=== PATIENT | female | born 1935 | race Caucasian/White ===

== ENCOUNTER 2017-10-23 14:49 | Inpatient (IN) | payer MEDICARE, OTHER ==
[~2017-10-23] VITALS: Ht 152.4 cm; Wt 59.0 kg
--- NOTE | 2017-10-23 19:30 | NUR ---
RECEIVED PT FROM [place] , DIRECT ADMIT, VIA [facility] AMBULANCE WITH 2 CREWS. TRANSFERRED TO BED , SAFELY. PT NON VERBAL, OPENS HER EYES. RECEIVED ON 10 L OF VIA MASK, 02 SAT IS 97 %. NO DISTRESS, NO SOB NOTED. FC IS INTACT AND PATENT, DRAINING WITH YELLOW URINE, NO HEMATURIA NOTED. IV SITE ON RFA AND LFA INTACT AND PATENT. NO S/S OF INFILTRATION NOTED. BODY CHECK DONE. ALL NEEDS ATTENDED AND MET. KEPT COMFORTABLE. WILL CONT TO MONITOR.
--- NOTE | 2017-10-23 19:45 | NUR ---
PT'S FAMILY AT BEDSIDE.
--- NOTE | 2017-10-23 20:00 | NUR ---
PLACED A CALL TO DR. WELCH , REGARDING ADMISSION ORDERS. AWAITING FOR MD'S ORDERS.
[2017-10-23] MEDS ORDERED: IV NS 0.9% 1,000 ML IV PRN ×2 (20:39→22:30)
--- NOTE | 2017-10-23 20:55 | NUR ---
ENDORSED PT TO MAXIMINO, ACCORDINGLY.
[2017-10-23] MEDS ORDERED: ENOXAPARIN SODIUM 40 MG/0.4 ML DISP.SYRIN SQ SCH (21:00)
[2017-10-23] MEDS ORDERED: MAG HYDROX/AL HYDROX/SIMETH 30 ML UDC PO PRN (21:00)
[2017-10-23] MEDS ORDERED: ZOLPIDEM TARTRATE 5 MG TABLET PO PRN (21:00)
[2017-10-23] MEDS ORDERED: ONDANSETRON HCL/PF 4 MG/2 ML VIAL IVP PRN (21:00)
[2017-10-23] MEDS ORDERED: MAGNESIUM HYDROXIDE 30 ML UDC PO PRN (21:00)
[2017-10-23] MEDS ORDERED: HYDROCODONE/APAP 5/325MG 1 EACH TABLET PO PRN (21:00)
[2017-10-23] MEDS ORDERED: Z GUARD REMEDY 2 OZ OINT TP PRN (21:00)
[2017-10-23] MEDS ORDERED: ACETAMINOPHEN 325 MG TABLET PO PRN (21:00)
[2017-10-23] MEDS ORDERED: CEFTRIAXONE 1 G in IV D5W 50 ML IV SCH (21:00)
--- NOTE | 2017-10-23 21:00 | NUR ---
RN NOTES RECEIVED PT IN BED, DIRECT ADMIT FROM [place], PT NON VERBAL, OPENS HER EYES. RECEIVED ON 8 L OF VIA MASK, 02 SAT IS 97 %. NO DISTRESS, NO SOB NOTED. FC IS INTACT AND PATENT, DRAINING WITH YELLOW URINE. IV SITE ON RFA AND LFA INTACT AND PATENT. NO S/S OF INFILTRATION NOTED. PICS TAKEN. BED IN THE LOWEST LOCKED POSITION. CALL LIGHT WITHIN REACH. I WILL CONT TO MONITOR.
[2017-10-23] MEDS ORDERED: OXYC-128 PO (21:07)
[2017-10-23] MEDS ORDERED: SORB30SO2 PO (21:07)
[2017-10-23] MEDS ORDERED: HYDR1DIS2 IVP (21:07)
[2017-10-23] MEDS ORDERED: TEMA30CA5 PO (21:07)
[2017-10-23] MEDS ORDERED: OSEL30CA PO (21:07)
[2017-10-23] MEDS ORDERED: DOXY100V2 IV (21:07)
[2017-10-23] MEDS ORDERED: ONDA4VIA30 IJ (21:07)
[2017-10-23] MEDS ORDERED: METR500P3 IV (21:07)
[2017-10-23] MEDS ORDERED: CEFT1FRO2 IV (21:07)
[2017-10-23] MEDS ORDERED: DONE10TA44 PO (21:07)
[2017-10-23] MEDS ORDERED: POLY17PO4 PO (21:07)
[2017-10-23] MEDS ORDERED: MEMA10TA PO (21:07)
[2017-10-23] MEDS ORDERED: ALBU2.5V13 NEB (21:07)
[2017-10-23] MEDS ORDERED: HEPA100D33 SQ (21:07)
[2017-10-23] MEDS ORDERED: MAG30ORA PO (21:07)
[2017-10-23] MEDS ORDERED: MELA3TAB PO (21:07)
[2017-10-23] MEDS ORDERED: MORP1SYR2 IVP (21:07)
[2017-10-23] MEDS ORDERED: POTA-10 PO (21:07)
[2017-10-23] MEDS ORDERED: PANT40TA4 PO (21:07)
[2017-10-23] MEDS ORDERED: ACET-868 PO (21:07)
[2017-10-23] MEDS ORDERED: BLOO-140 IN (21:07)
[2017-10-23 21:38] LABS: EOSINOPHILS % (AUTO) 0.1 % (0.0-6.0); HEMATOCRIT 35 % (33-45); HEMOGLOBIN 11.8 g/dL (11.5-14.8); LYMPHOCYTES # (AUTO) 0.8 /CMM (0.8-4.8); MEAN CORPUSCULAR HEMOGLOBIN 32 PG (26.0-33.0); MEAN CORPUSCULAR HGB CONC 34 g/dl (31.0-36.0); MEAN CORPUSCULAR VOLUME 95 fL (82-100); MONOCYTES # (AUTO) 0.4 /CMM (0.1-1.30); MONOCYTES % (AUTO) 2.9 % (2.0-12.0); NEUTROPHILS # (AUTO) 12.6 /CMM (1.8-8.9); PLATELET COUNT (AUTO) 156 /CMM (150-450); RDW COEFFICIENT OF VARIATION 15.6 (11.5-15.0); RED BLOOD CELL COUNT(AUTO) 3.68 MIL/uL (4.0-5.2); WHITE BLOOD COUNT (AUTO) 13.8 K/uL (4.3-11.0)
[2017-10-23 21:41] LABS: ABG BASE EXCESS -2.8 mmol/L; ABG OXYGEN SATURATION 89.5 % (92.0-98.5); ABG PCO2 30.9 mmHg (35.0-45.0); ABG PH 7.434 (7.350-7.450); ABG PO2 54.8 mmHg (75.0-100.0); COHb 0.7 % (0.5-1.5); MetHb 0.1 % (0.0-1.5); O2Hb 88.8 % (94.0-97.0); VENT MODE, BG SIMPLE MASK
[2017-10-23 21:50] LABS: ALANINE AMINOTRANSFERASE 15 U/L (12-78); ALBUMIN 1.8 g/dL (3.4-5.0); ALKALINE PHOSPHATASE 216 U/L (46-116); ASPARTATE AMINOTRANSFERASE 26 U/L (15-37); CALCIUM, SERUM 8.8 mg/dL (8.5-10.1); CARBON DIOXIDE 26 mmol/L (21-32); CREATININE 0.9 mg/dL (0.6-1.3); GLUCOSE 102 mg/dL (74-106); POTASSIUM 3.2 mmol/L (3.5-5.1); TOTAL PROTEIN, SERUM 5.8 g/dL (6.4-8.2); UREA NITROGEN, BLOOD 41 mg/dL (7-18)
[2017-10-23 21:52] LABS: TROPONIN I 0.105 ng/mL (0.00-0.056)
[2017-10-23 22:02] LABS: CHLORIDE 130 mmol/L (98-107); SODIUM SERUM 158 mmol/L (136-145)
[2017-10-23] MEDS: PIPERACILLIN /TAZOBACTAM 2.25 G in IV NS 0.9% 50 ML IV SCH (23:11)
[2017-10-23 23:30] LABS: BILIRUBIN,DIRECT 0.5 mg/dL (0.0-0.2)
[2017-10-23] MEDS ORDERED: PIPERACILLIN /TAZOBACTAM 2.25 G VIAL IV ONE (23:54)
[2017-10-24] VITALS (44 sets, daily range): BP systolic 80–130; BP diastolic 46–74
[2017-10-24] MEDS: PIPERACILLIN /TAZOBACTAM 2.25 G in IV NS 0.9% 50 ML IV SCH ×5 (00:01→23:36)
[2017-10-24] MEDS: IPRATROPIUM NEB FS 0.5 MG/2.5 ML AMPUL.NEB NEB SCH ×7 (00:09→23:00)
[2017-10-24] MEDS ORDERED: VANCOMYCIN 1 GM in IV D5W 250 ML IV ONE (01:00)
[2017-10-24] MEDS ORDERED: VANCOMYCIN 1 GM VIAL ONE (01:56)
--- NOTE | 2017-10-24 06:56 | NUR ---
RN CLOSING NOTES NO SIGNIFICANT CHANGE IN PTS CONDITION OVER NIGHT. PT SLEPT MOST OF NIGHT, OPENS EYES WHEN BEING ATTENDED TO. PT ON 8L OF 02 VIA MASK, 02 SAT IS 97 %- 100%,. NO DISTRESS, NO SOB NOTED. FC IS INTACT AND PATENT, DRAINING WITH YELLOW URINE, NO HEMATURIA NOTED OUTPUT 250. IV SITE ON RFA AND LFA INTACT AND PATENT. LFA INFUSING 0.9NS @ 75ML/HR. NO S/S OF INFILTRATION NOTED. RFA .9 NS BOLUS GIVEN. ADMISSION COMPLETED. ALL NEEDS ATTENDED AND MET.BED IN LOWEST LOCKED POSITION, CALL LIGHT WITHIN REACH. PT KEPT COMFORTABLE. WILL ENDORSE TO AM RN
[2017-10-24 07:33] LABS: EOSINOPHILS % (AUTO) 0.1 % (0.0-6.0); HEMATOCRIT 32 % (33-45); HEMOGLOBIN 10.4 g/dL (11.5-14.8); LYMPHOCYTES # (AUTO) 0.8 /CMM (0.8-4.8); MEAN CORPUSCULAR HEMOGLOBIN 32 PG (26.0-33.0); MEAN CORPUSCULAR HGB CONC 33 g/dl (31.0-36.0); MEAN CORPUSCULAR VOLUME 96 fL (82-100); MONOCYTES # (AUTO) 0.3 /CMM (0.1-1.30); MONOCYTES % (AUTO) 2.8 % (2.0-12.0); NEUTROPHILS # (AUTO) 10.6 /CMM (1.8-8.9); NEUTROPHILS % (AUTO) 90.1 % (43.0-81.0); PLATELET COUNT (AUTO) 134 /CMM (150-450); RDW COEFFICIENT OF VARIATION 15.6 (11.5-15.0); WHITE BLOOD COUNT (AUTO) 11.8 K/uL (4.3-11.0)
--- NOTE | 2017-10-24 07:45 | NUR ---
INCREASED O2 FOR DESAT. PT TACHYPNEIC RESP RATE: IN THE 30'S. PT HAVING SOB, LETHARGIC BUT AROUSABLE. ASKED RN TO CALL MD TO NOTIFY. PT ON 10/L SIMPLE MASK. WILL CONTINUE TO MONITOR PT. Addendum: 10/24/17 at 1833 by RAFFI ACEVEDO RT Amended: Links added.
[2017-10-24 07:46] LABS: CHOLESTEROL 99 mg/dL (<200); HDL CHOLESTEROL 19 mg/dL (40-60); LDL 64 mg/dL (0-99); TRIGLYCERIDES 91 mg/dL (30-150)
[2017-10-24 07:49] LABS: ALANINE AMINOTRANSFERASE 17 U/L (12-78); ALBUMIN 1.5 g/dL (3.4-5.0); ALKALINE PHOSPHATASE 201 U/L (46-116); ASPARTATE AMINOTRANSFERASE 23 U/L (15-37); BILIRUBIN,TOTAL 0.9 mg/dL (0.2-1.0); CALCIUM, SERUM 8.2 mg/dL (8.5-10.1); CARBON DIOXIDE 24 mmol/L (21-32); CREATININE 0.7 mg/dL (0.6-1.3); GLUCOSE 118 mg/dL (74-106); MAGNESIUM 1.8 mg/dL (1.8-2.4); POTASSIUM 3.2 mmol/L (3.5-5.1); TOTAL PROTEIN, SERUM 5.1 g/dL (6.4-8.2); UREA NITROGEN, BLOOD 33 mg/dL (7-18)
[2017-10-24 08:00] LABS: CHLORIDE 136 mmol/L (98-107); SODIUM SERUM 169 mmol/L (136-145)
[2017-10-24] MEDS ORDERED: IV D5/0.45 NACL 1,000 ML IV PRN (08:30)
[2017-10-24] MEDS ORDERED: ENOXAPARIN SODIUM 40 MG/0.4 ML DISP.SYRIN SQ SCH ×2 (09:00→21:00)
[2017-10-24] MEDS: POTASSIUM CL. PREMIX PERIPHER. 50 ML IV SCH ×3 (10:58→13:15)
[2017-10-24 11:31] LABS: ABG BASE EXCESS -2.5 mmol/L; ABG OXYGEN SATURATION 95.3 % (92.0-98.5); ABG PCO2 30.2 mmHg (35.0-45.0); ABG PH 7.452 (7.350-7.450); ABG PO2 75.6 mmHg (75.0-100.0); COHb 0.3 % (0.5-1.5); MetHb 0.2 % (0.0-1.5); O2Hb 94.8 % (94.0-97.0); SITE, ABG Left Radial; VENT MODE, BG SIMPLE MASK 10/L
--- NOTE | 2017-10-24 11:34 | NUR ---
PT CONTINUE TO HAVE SOB/ RESP DISTRESS, LABORED BREATHING. ABG DONE AND DR RICHARDS AWARE. RESP RATE IN THE 30'S. RN AWARE, CN AWARE. WILL CONTINUE TO MONITOR PT. Addendum: 10/24/17 at 1837 by RAFFI ACEVEDO RT Amended: Links added.
[2017-10-24] MEDS: POTASSIUM PHOSPHATE MM 7.5 MMOL in IV NS 0.9% 100 ML IV SCH ×2 (12:47→18:07)
--- NOTE | 2017-10-24 13:30 | NUR ---
PLACED PT ON NRB. KEY TRINIDAD MD AND KRISTINA HOLLIS NP AT BEDSIDE ASSESSING PT. CXR ORDERED, PT WILL TRANSFER TO ICU FOR POSSIBLE INTUBATION. WILL CONTINUE TO MONITOR PT.
--- NOTE | 2017-10-24 14:00 | NUR ---
RN NOTES PATIENT NOTED WITH LABORED BREATHING. STAT CHEST X-RAY DONE. DR KEY COLEMAN AND KRISTINA HOLLIS VALVE ASSEMBLER AT BEDSIDE WITH ORDER TO TRANSFERRED PATIENT TO ICU. PATIENT TRANSFERRED TO ICU. REPORT GIVEN TO RAUL SANTANA FOR CONT OF CARE.
--- NOTE | 2017-10-24 14:05 | NUR ---
ICU/RN: Pt transferred to ICU by primary RN, Davon Ly and Thor White for respiratory distress. Pt for stat intubation. Intubated by Davon Ly ETT 7.5 at 20 cm lip line. CXR ordered. 1430 - Davon Ly at bedside for PICC insertion; no working PIV available.
[2017-10-24] MEDS ORDERED: FEE PK DOSING 1 MIN EA MC ONE (14:54)
[2017-10-24] MEDS ORDERED: PROPOFOL 100 ML IV PRN (15:00)
[2017-10-24] MEDS ORDERED: ETOMIDATE 2 MG/ML VIAL ONE (15:02)
[2017-10-24] MEDS: PROPOFOL 100 ML IV PRN (15:12)
--- NOTE | 2017-10-24 15:29 | NUR ---
PT INTUBATED BY DR. COLEMAN WITH A 7.5 ETT AT 20CM AT THE LIP. POSITIVE COLOR CHANGE ON CAP. B/S BILAT. AUSCULTATED BY DR. COLEMAN. PT PLACED ON AC 14, 450, 100%, +[address] COLEMAN. VENT PLUGGED INTO RED OUTLET. AMBU BAG AT HOB. Addendum: 10/24/17 at 1531 by SUZIE MIMS RT Amended: Links added.
[2017-10-24] MEDS: IV NS 0.9% 1,000 ML IV PRN (15:36)
--- NOTE | 2017-10-24 16:00 | NUR ---
ICU/RN - Notes Pt sedated on mechanical ventilator. Orally intubated to mechanical vent with settings as ordered. No s/s of respiratory distress. Left IJ TLC placed in by Dr Davon Ly. IVF infusing well. Oral tube placed with audible positive placement noted. Phillips catheter intact draining urine to gravity. CVP monitoring in process. Family updated on plan of care. Safety and comfort measure in place. Will continue to monitor pt closely.
[2017-10-24 17:41] LABS: ABG BASE EXCESS -3.3 mmol/L; ABG PCO2 25.1 mmHg (35.0-45.0); AaDO2 409.9 mmHg; COHb 0.3 % (0.5-1.5); MetHb 0.7 % (0.0-1.5); O2Hb 97.7 % (94.0-97.0); PEEP,BG 5 cm H2O; SITE, ABG Right Radial; VT, ABG 450 mL
[2017-10-24] MEDS: NOREPINEPHRINE 8 MG in IV D5W 500 ML IV PRN (18:54)
--- NOTE | 2017-10-24 19:30 | NUR ---
CHIEF DOG LICENSE INSPECTOR: RECEIVED ORALLY INTUBATED PT WT VENT SETTINGS ORDERED. NO ACUTE DISTRESS, NO EVIDENCE OF DISCOMFORT. SEDATED ON DIPRIVAN AT 10MCG/LG/MIN. WITHDRAWS TO LOCALIZED PAIN, UNABLE TO FOLLOW COMMANDS AT THIS TIME. LT. IJ TLC ALSO INFUSING NS AT 125ML/HR AND LEVOPHED AT 1 MCG/MIN. OGT REMAINED CLAMPED AT THIS TIME, VERIFIED PLACEMENT. SR ON CUPOLA WORKER. F/C PATENT AND INTACT DRAINING MINIMAL AMT. OF TEA COLORED URINE. HOB ELEVATED AT 35 DEGREES. SAFETY PRECAUTION NOTED AT ALL TIMES.
--- NOTE | 2017-10-24 19:53 | NUR ---
Received pt on vent support, pt stable on current settings, no SOB or respiratory distress noted, ventilator is plugged into red outlet, alarms audible and on. Ambu bag at bedside, will continue monitoring per MDS orders. Addendum: 10/24/17 at 1954 by JORDIN TEIXEIRA RT Amended: Links added.
[2017-10-24] MEDS: VANCOMYCIN 500 MG in IV NS 0.9% 100 ML IV SCH (20:39)
[2017-10-24] MEDS ORDERED: IV NS 0.9% 500 ML BAG IV PRN (21:00)
[2017-10-24 21:13] LABS: APPEARANCE,URINE CLOUDY (CLEAR); BILIRUBIN,URINE NEGATIVE (NEGATIVE); BLOOD, URINE 2+ Ery/uL (NEGATIVE); COLOR,URINE YELLOW (YELLOW); KETONES,URINE NEGATIVE (NEGATIVE); LEUKOCYTE ESTERASE ,URINE 2+ (NEGATIVE); NITRITE, URINE NEGATIVE (NEGATIVE); PH,URINE 5.5 (5.0-8.0); PROTEIN,URINE TRACE mg/dl (NEGATIVE); UGLUCOSE NEGATIVE (NEGATIVE); UROBILINOGEN,URINE 0.2 EU/dL (0.2)
[2017-10-24 21:23] LABS: CREATININE, URINE 29.4 MG/DL (30.0-125.0); URINE TOTAL PROTEIN 63.1 mg/dL (0-11.9)
[2017-10-24 21:30] LABS: BACTERIA,URINE Few /HPF (None Seen)
[2017-10-24 21:31] LABS: SQUAMOUS EPITHELIAL CELL,UR Few /HPF (None Seen)
[2017-10-24 21:52] LABS: EOSINOPHIL,URINE None Seen
[2017-10-24 22:23] LABS: CALCIUM, SERUM 7.8 mg/dL (8.5-10.1); CARBON DIOXIDE 22 mmol/L (21-32); CREATININE 0.7 mg/dL (0.6-1.3); GLUCOSE 122 mg/dL (74-106); POTASSIUM 3.3 mmol/L (3.5-5.1); UREA NITROGEN, BLOOD 30 mg/dL (7-18)
[2017-10-24 22:28] LABS: CHLORIDE 133 mmol/L (98-107); SODIUM SERUM 164 mmol/L (136-145)
[2017-10-25] VITALS (110 sets, daily range): BP systolic 80–127; BP diastolic 46–81
--- NOTE | 2017-10-25 | NUR ---
COLORIST: NO NUSRAT. VS WITHIN PT's BASELINE. REPOSITIONED.
[2017-10-25] MEDS: IV NS 0.9% 1,000 ML IV PRN (01:35)
[2017-10-25] MEDS: IPRATROPIUM NEB FS 0.5 MG/2.5 ML AMPUL.NEB NEB SCH ×6 (02:49→23:35)
--- NOTE | 2017-10-25 04:00 | NUR ---
RESISTOR TESTER: BED BATH GIVEN AND TOLERATED WELL.
[2017-10-25 04:56] LABS: EOSINOPHILS # (AUTO) 0.2 /CMM (0.0-0.7); EOSINOPHILS % (AUTO) 1.4 % (0.0-6.0); HEMATOCRIT 29 % (33-45); HEMOGLOBIN 9.8 g/dL (11.5-14.8); LYMPHOCYTES # (AUTO) 1.1 /CMM (0.8-4.8); LYMPHOCYTES % (AUTO) 8.3 % (20.0-44.0); MEAN CORPUSCULAR HEMOGLOBIN 32 PG (26.0-33.0); MEAN CORPUSCULAR HGB CONC 34 g/dl (31.0-36.0); MEAN CORPUSCULAR VOLUME 94 fL (82-100); MONOCYTES # (AUTO) 0.4 /CMM (0.1-1.30); MONOCYTES % (AUTO) 2.7 % (2.0-12.0); NEUTROPHILS % (AUTO) 87.6 % (43.0-81.0); PLATELET COUNT (AUTO) 128 /CMM (150-450); WHITE BLOOD COUNT (AUTO) 13.8 K/uL (4.3-11.0)
[2017-10-25 05:17] LABS: ALANINE AMINOTRANSFERASE 15 U/L (12-78); ALKALINE PHOSPHATASE 194 U/L (46-116); ASPARTATE AMINOTRANSFERASE 20 U/L (15-37); BILIRUBIN,TOTAL 1.3 mg/dL (0.2-1.0); CALCIUM, SERUM 7.7 mg/dL (8.5-10.1); CARBON DIOXIDE 23 mmol/L (21-32); CREATININE 0.6 mg/dL (0.6-1.3); GLUCOSE 99 mg/dL (74-106); MAGNESIUM 1.5 mg/dL (1.8-2.4); PHOSPHORUS 2.4 mg/dL (2.5-4.9); POTASSIUM 2.9 mmol/L (3.5-5.1); TOTAL PROTEIN, SERUM 4.7 g/dL (6.4-8.2); UREA NITROGEN, BLOOD 26 mg/dL (7-18)
[2017-10-25 05:31] LABS: ALBUMIN 1.3 g/dL (3.4-5.0); CHLORIDE 132 mmol/L (98-107); SODIUM SERUM 163 mmol/L (136-145)
[2017-10-25] MEDS: PIPERACILLIN /TAZOBACTAM 2.25 G in IV NS 0.9% 50 ML IV SCH ×4 (06:16→23:39)
[2017-10-25] MEDS: PROPOFOL 100 ML IV PRN (06:22)
--- NOTE | 2017-10-25 06:30 | NUR ---
FUEL MANAGEMENT HANDLER: RELAYED ABNORMAL LABS TO DR. WELCH WT EMPHASIS ON CRITICAL ALBUMIN=1.3. MD SAID NO ORDER FOR ALBUMIN AND JUST FF-UP WT DAY SHIFT MD FOR GT FEEDING. WT ORDER FOR MG 2GM AND KCL 40MEQ IV FOR K=2.9. NOTED AND CARRIED OUT.
[2017-10-25] MEDS ORDERED: Magnesium 1GM/D5W 100ML PREMIX 100 ML IV ONE (06:39)
[2017-10-25] MEDS: Magnesium 1GM/D5W 100ML PREMIX 100 ML IV SCH ×2 (06:45→08:34)
--- NOTE | 2017-10-25 07:30 | NUR ---
WIRE COMMUNICATIONS ENGINEER RECEIVED PATIENT ON DIPRIVAN SEDATION (+) PAIN STIMULI, FACIAL GRIMACE NOTED WHEN TURNED TO SIDE TO SIDE PLACED ON NPO FREE FLUSHED TO OGT PER MD ORDER ON LEVOPHED DRIP TITRATING ACCORDINGLY MAG AND K REPLACEMENT ON GOING WITH LING CONNECTED TO URINE BAG WITH SMALL AMOUNT
[2017-10-25] MEDS: ENOXAPARIN SODIUM 40 MG/0.4 ML DISP.SYRIN SQ SCH (08:35)
[2017-10-25 08:52] LABS: ABG BASE EXCESS -3.9 mmol/L; ABG OXYGEN SATURATION 97.3 % (92.0-98.5); ABG PCO2 27.7 mmHg (35.0-45.0); ABG PH 7.456 (7.350-7.450); AaDO2 183.3 mmHg; COHb 0.3 % (0.5-1.5); MetHb 0.3 % (0.0-1.5); O2Hb 96.7 % (94.0-97.0); PEEP,BG 5 cm H2O; SITE, ABG Left Radial; VENT MODE, BG AC 14 400 45% +5; VT, ABG 400 mL
[2017-10-25] MEDS: POTASSIUM CL. PREMIX PERIPHER. 50 ML IV SCH ×4 (09:44→12:00)
[2017-10-25] MEDS ORDERED: Sodium Phosphate 5 MMOL in IV D5W 100 ML IV ONE (11:00)
[2017-10-25] MEDS: VANCOMYCIN 500 MG in IV NS 0.9% 100 ML IV SCH (13:38)
--- NOTE | 2017-10-25 14:00 | NUR ---
MANAGER SUSTAINABILITY CHANGED URINE BAG SEEN AND EXAMINED BY DR. COLE WITH NEW ORDERS MAD AND CARRIED
[2017-10-25] MEDS: NOREPINEPHRINE 8 MG in IV D5W 500 ML IV PRN (15:48)
[2017-10-25] MEDS: LEVOFLOXACIN 750 MG /D5W 150ML 750 MG in PREMIX 1 EA IV SCH (16:23)
--- NOTE | 2017-10-25 17:34 | NUR ---
RT NOTE PT REMAINS MECHANICALLY VENTILATED VIA 7.5 ETT 20 CM AT LIP. SETTINGS PRESCRIBED AC 14 400 45% +5. ALARMS SET PER PROTOCOL AND AUDIBLE. VENT PLUGGED IN TO RED OUTLET. AMBU BAG AT BED SIDE. NO DISTRESS NOTED.
[2017-10-26] VITALS (99 sets, daily range): BP systolic 81–120; BP diastolic 46–87
[2017-10-26] MEDS: IPRATROPIUM NEB FS 0.5 MG/2.5 ML AMPUL.NEB NEB SCH ×6 (03:31→23:44)
[2017-10-26 05:26] LABS: BASOPHILS % (AUTO) 0.2 % (0.0-2.0); EOSINOPHILS # (AUTO) 0.5 /CMM (0.0-0.7); EOSINOPHILS % (AUTO) 5.6 % (0.0-6.0); HEMATOCRIT 27 % (33-45); LYMPHOCYTES # (AUTO) 1.2 /CMM (0.8-4.8); LYMPHOCYTES % (AUTO) 12.5 % (20.0-44.0); MEAN CORPUSCULAR HEMOGLOBIN 31 PG (26.0-33.0); MEAN CORPUSCULAR HGB CONC 33 g/dl (31.0-36.0); MEAN CORPUSCULAR VOLUME 94 fL (82-100); MONOCYTES # (AUTO) 0.5 /CMM (0.1-1.30); NEUTROPHILS # (AUTO) 7.1 /CMM (1.8-8.9); NEUTROPHILS % (AUTO) 76.7 % (43.0-81.0); PLATELET COUNT (AUTO) 116 /CMM (150-450); RDW COEFFICIENT OF VARIATION 15.3 (11.5-15.0); RED BLOOD CELL COUNT(AUTO) 2.93 MIL/uL (4.0-5.2); WHITE BLOOD COUNT (AUTO) 9.2 K/uL (4.3-11.0)
[2017-10-26 05:48] LABS: ALANINE AMINOTRANSFERASE 10 U/L (12-78); ALKALINE PHOSPHATASE 174 U/L (46-116); ASPARTATE AMINOTRANSFERASE 19 U/L (15-37); BILIRUBIN,TOTAL 1.1 mg/dL (0.2-1.0); CALCIUM, SERUM 7.3 mg/dL (8.5-10.1); CARBON DIOXIDE 18 mmol/L (21-32); CHLORIDE 121 mmol/L (98-107); CREATININE 0.5 mg/dL (0.6-1.3); GLUCOSE 95 mg/dL (74-106); MAGNESIUM 1.8 mg/dL (1.8-2.4); PHOSPHORUS 2.3 mg/dL (2.5-4.9); POTASSIUM 3.4 mmol/L (3.5-5.1); SODIUM SERUM 149 mmol/L (136-145); TOTAL PROTEIN, SERUM 4.2 g/dL (6.4-8.2)
[2017-10-26 05:58] LABS: UREA NITROGEN, BLOOD 14 mg/dL (7-18)
[2017-10-26] MEDS: PIPERACILLIN /TAZOBACTAM 2.25 G in IV NS 0.9% 50 ML IV SCH ×3 (06:06→17:23)
[2017-10-26] MEDS: PROPOFOL 100 ML IV PRN ×2 (06:07→18:00)
[2017-10-26 06:11] LABS: ALBUMIN 1.1 g/dL (3.4-5.0)
[2017-10-26] MEDS: NOREPINEPHRINE 8 MG in IV D5W 500 ML IV PRN ×2 (07:26→18:33)
--- NOTE | 2017-10-26 08:27 | NUR ---
WOUND CARE CONSULT: PT PRESENTS WITH SACRAL SCARRING AND SKIN STAINING. CURRENT FLORIN SCORE IS 12. PT ON FIRST STEP MATTRESS. ALL SKIN PROTECTION MEASURES IN PLACE AND DISCUSSED WITH NURSING STAFF. PT IS INCONTINENT. WILL SEE PRN. VERDUGO IN AGREEMENT WITH PLAN OF CARE. Addendum: 10/26/17 at 0831 by JAH CARUSO WNDNU Amended: Links added.
[2017-10-26] MEDS: VANCOMYCIN 500 MG in IV NS 0.9% 100 ML IV SCH (08:40)
[2017-10-26] MEDS: ENOXAPARIN SODIUM 40 MG/0.4 ML DISP.SYRIN SQ SCH (08:50)
--- NOTE | 2017-10-26 10:50 | NUR ---
BANK TELLER NOTE 0720: Received patient sedated. With ETT to vent, tolerated settings at this time. SR 60's on the monitor. CVP 4. With LIJ TLC intact. On IVF infusing as ordered. On Diprivan @ 15mcg, Levophed @ 8mcg. Phillips cath intact, noted with yellow urine with sediments drained to BSD. OGT intact, clamped. 0900: Able to titrate off Diprivan for sedation vacation. Patient remained calm at this time. Will continue to monitor. Obtained order for CAMERA ENGINEER restraints for safety. Will monitor for need for sedation. Opens eyes but does not follow commands at this time. 0940: S/E by Dr. Gallardo, no new order at this time. Levo @ 6mcg at this time, will titrate as ordered. 1040: No any significant changes noted at this time. Continue off sedation, remained calm.
[2017-10-26] MEDS: FIBERSOURCE HN 1,000 ML BOTTLE GT PRN (15:25)
[2017-10-26] MEDS ORDERED: NEUTRA PHOS 1 POWD.PACKET NG ONE (17:00)
[2017-10-27] VITALS (78 sets, daily range): BP systolic 79–131; BP diastolic 28–109
[2017-10-27] MEDS: PIPERACILLIN /TAZOBACTAM 2.25 G in IV NS 0.9% 50 ML IV SCH ×4 (00:08→17:30)
[2017-10-27] MEDS: VANCOMYCIN 500 MG in IV NS 0.9% 100 ML IV SCH ×2 (02:29→19:17)
[2017-10-27] MEDS: IPRATROPIUM NEB FS 0.5 MG/2.5 ML AMPUL.NEB NEB SCH ×6 (03:40→23:51)
--- NOTE | 2017-10-27 03:40 | NUR ---
samanthae extremity dvt positive in brachial vein, report called in at 0323, dr briceño called at 0330, no new orders, will continue to monitor
[2017-10-27 05:09] LABS: BASOPHILS % (AUTO) 0.2 % (0.0-2.0); EOSINOPHILS # (AUTO) 0.3 /CMM (0.0-0.7); HEMATOCRIT 27 % (33-45); HEMOGLOBIN 9.1 g/dL (11.5-14.8); LYMPHOCYTES # (AUTO) 0.6 /CMM (0.8-4.8); LYMPHOCYTES % (AUTO) 10.1 % (20.0-44.0); MEAN CORPUSCULAR HEMOGLOBIN 31 PG (26.0-33.0); MEAN CORPUSCULAR HGB CONC 34 g/dl (31.0-36.0); MEAN CORPUSCULAR VOLUME 93 fL (82-100); MONOCYTES # (AUTO) 0.3 /CMM (0.1-1.30); MONOCYTES % (AUTO) 4.9 % (2.0-12.0); NEUTROPHILS # (AUTO) 4.6 /CMM (1.8-8.9); NEUTROPHILS % (AUTO) 79.8 % (43.0-81.0); PLATELET COUNT (AUTO) 110 /CMM (150-450); RDW COEFFICIENT OF VARIATION 15.3 (11.5-15.0); RED BLOOD CELL COUNT(AUTO) 2.92 MIL/uL (4.0-5.2); WHITE BLOOD COUNT (AUTO) 5.8 K/uL (4.3-11.0)
[2017-10-27 05:31] LABS: ALANINE AMINOTRANSFERASE 11 U/L (12-78); ALKALINE PHOSPHATASE 280 U/L (46-116); ASPARTATE AMINOTRANSFERASE 23 U/L (15-37); BILIRUBIN,TOTAL 1.1 mg/dL (0.2-1.0); CALCIUM, SERUM 7.5 mg/dL (8.5-10.1); CARBON DIOXIDE 18 mmol/L (21-32); CHLORIDE 121 mmol/L (98-107); CREATININE 0.4 mg/dL (0.6-1.3); GLUCOSE 121 mg/dL (74-106); MAGNESIUM 1.8 mg/dL (1.8-2.4); POTASSIUM 3.7 mmol/L (3.5-5.1); SODIUM SERUM 148 mmol/L (136-145); TOTAL PROTEIN, SERUM 4.2 g/dL (6.4-8.2); UREA NITROGEN, BLOOD 10 mg/dL (7-18)
[2017-10-27 05:46] LABS: ALBUMIN 1.1 g/dL (3.4-5.0)
--- NOTE | 2017-10-27 06:02 | NUR ---
RT PT RECEIVED INTUBATED ON [facility] VENT WITH NOTED SETTING. ETT PATENT AND SECURE. VENT PLUGGED IN TO RED OUTLET. ALARMS SET AND AUDIBLE. AMBU BAG AT [facility]. ELEMENTARY SCHOOL SOCIAL WORKER DONE. NO SOB OR RESP DISTRESS NOTED ON SHIFT. Addendum: 10/27/17 at 0605 by NITA HORTON RT Amended: Links added.
[2017-10-27] MEDS: ALBUTEROL FS 2.5 MG/0.5 ML VIAL.NEB NEB PRN (07:23)
[2017-10-27] MEDS: ENOXAPARIN SODIUM 40 MG/0.4 ML DISP.SYRIN SQ SCH (08:07)
[2017-10-27 10:16] LABS: ABG PCO2 26.2 mmHg (35.0-45.0); ABG PH 7.432 (7.350-7.450); ABG PO2 108.8 mmHg (75.0-100.0); AaDO2 110.3 mmHg; COHb 0.2 % (0.5-1.5); MetHb 0.4 % (0.0-1.5); O2Hb 96.4 % (94.0-97.0); PEEP,BG 5 cm H2O; SITE, ABG Left Radial; VT, ABG 400 mL
--- NOTE | 2017-10-27 11:30 | NUR ---
PACKAGE MAKER NOTE 0720: Received patient sedated. With ETT to vent, tolerated settings well. No respiratory distress noted at this time. With OGT intact, feeding tolerated well, no residuals, kept HOB elevated. With LIJ TLC intact. IVF infusing as ordered. On Diprivan @ 10mcg. Phillips cath intact, noted with minimal yellow UOP drained to BSD. SR 60's on the monitor. On Levo at 4mcg, will titrate as ordered. POLICE CHIEF DEPUTY restraints on for safety. 0745: Turned off Diprivan for sedation vacation and weaning trial. 0815: RT placed vent setting to SIMV mode, will monitor breathing and VS. 0920: S/E by Dr. Gallardo, patient opens eyes but does not follow commands. 1000: ABG done, Dr. Gallardo aware, no new order at this time, keep SIMV mode and place back to AC when on distress. 1120: Visited by son, updated re: patient's condition. All questions and concerns were answered. Kept clean, warm and dry. Needs attended. 1130: No any significant changes noted at this time.
[2017-10-27] MEDS: ALBUMIN 25% 25 GM in PREMIX 1 EA IV SCH ×2 (14:48→19:17)
[2017-10-27] MEDS: FIBERSOURCE HN 1,000 ML BOTTLE GT PRN (14:48)
[2017-10-27] MEDS: LACTOBACILLUS RHAMNOSUS GG 1 EACH CAP.SPRINK PO SCH (16:14)
[2017-10-27] MEDS: LEVOFLOXACIN 750 MG /D5W 150ML 750 MG in PREMIX 1 EA IV SCH (16:15)
--- NOTE | 2017-10-27 16:37 | NUR ---
BROTH SETTER NOTE 1430: S/E by Dr. Gallardo, with order to keep on SIMV mode and will do CPAP trial tomorrow. 1500: S/E by Yanni DEL ROSARIO, made aware for low UOP, about 30mL q2, said, will continue Albumin for now. Remained off pressors and Dirpivan, VSS at this time. SBP >90.
--- NOTE | 2017-10-27 18:03 | NUR ---
RT END OF THE SHIFT REPORT PT. 82 Y OLD FEMALE REMAIN ORALLY INTUBATED ETT # 7.5 @ 20 CM LIPLINE. AND ON VENT WITH NOTED SIMV SETTINGS, ALARMS ARE SET AND FUNCTIONAL. PT. REMAIN ON SIMV MODE PER DR. SABILLON AND NO DISTRESS NOTED T/O SHIFT. B/S BILATERALLY RHONCHI. EQUAL CHEST RISE NOTED. SUX'D FOR MINIMUM AMT. YELLOWISH SECRETIONS, AND CONTINUE FOR MONITOR AND CARE FOR PT. AMBU BAG REMAIN AT THE BEDSIDE. VENT PLUGGED INTO RED OUTLET. HME CHANGED, REPORT WILL PASS TO PM SHIFT. Addendum: 10/27/17 at 1805 by KALYAN BARKER RT Amended: Links added.
--- NOTE | 2017-10-27 21:18 | NUR ---
PT RECEIVED ON VENT VIA CHARTED SETTINGS AND ROUTE. VENT PLUGGED INTO RED OUTLET. VENT ALARMS SET AND AUDIBLE. DISCONNECT ALARMS CHECKED. PT TOLERATING VENT SETTINGS WELL AT THIS TIME. Addendum: 10/27/17 at 2119 by GUILLERMO AGUILAR RT Amended: Links added.
[2017-10-28] VITALS (52 sets, daily range): BP systolic 91–124; BP diastolic 46–72
[2017-10-28] MEDS: PIPERACILLIN /TAZOBACTAM 2.25 G in IV NS 0.9% 50 ML IV SCH ×3 (00:13→11:43)
[2017-10-28] MEDS: ALBUMIN 25% 25 GM in PREMIX 1 EA IV SCH ×2 (01:19→06:38)
[2017-10-28] MEDS: ALBUTEROL FS 2.5 MG/0.5 ML VIAL.NEB NEB PRN (03:17)
[2017-10-28] MEDS: IPRATROPIUM NEB FS 0.5 MG/2.5 ML AMPUL.NEB NEB SCH ×6 (03:17→23:34)
[2017-10-28 04:42] LABS: BASOPHILS % (AUTO) 0.3 % (0.0-2.0); EOSINOPHILS # (AUTO) 0.1 /CMM (0.0-0.7); EOSINOPHILS % (AUTO) 4.1 % (0.0-6.0); HEMATOCRIT 21 % (33-45); HEMOGLOBIN 7.3 g/dL (11.5-14.8); LYMPHOCYTES # (AUTO) 0.4 /CMM (0.8-4.8); LYMPHOCYTES % (AUTO) 13.6 % (20.0-44.0); MEAN CORPUSCULAR HEMOGLOBIN 32 PG (26.0-33.0); MEAN CORPUSCULAR HGB CONC 35 g/dl (31.0-36.0); MEAN CORPUSCULAR VOLUME 92 fL (82-100); MONOCYTES # (AUTO) 0.2 /CMM (0.1-1.30); MONOCYTES % (AUTO) 5.7 % (2.0-12.0); NEUTROPHILS # (AUTO) 2.2 /CMM (1.8-8.9); NEUTROPHILS % (AUTO) 76.3 % (43.0-81.0); PLATELET COUNT (AUTO) 81 /CMM (150-450); RDW COEFFICIENT OF VARIATION 15.2 (11.5-15.0); RED BLOOD CELL COUNT(AUTO) 2.31 MIL/uL (4.0-5.2); WHITE BLOOD COUNT (AUTO) 2.9 K/uL (4.3-11.0)
[2017-10-28 04:55] LABS: CALCIUM, SERUM 7.5 mg/dL (8.5-10.1); CARBON DIOXIDE 20 mmol/L (21-32); CHLORIDE 115 mmol/L (98-107); CREATININE 0.3 mg/dL (0.6-1.3); GLUCOSE 84 mg/dL (74-106); POTASSIUM 3.3 mmol/L (3.5-5.1); SODIUM SERUM 148 mmol/L (136-145); UREA NITROGEN, BLOOD 9 mg/dL (7-18)
[2017-10-28 05:13] LABS: EOSINOPHILS % (MANUAL) 3 % (0-4); LYMPHOCYTES % (MANUAL) 16 % (16-48); MONOCYTES % (MANUAL) 6 % (0-11.0); NEUTROPHILS % (MANUAL) 75 (42-76)
--- NOTE | 2017-10-28 08:00 | NUR ---
GRADING SUPERVISOR RECEIVED PT AROUSEABLE. NOT FOLLOWING COMMANDS. ABLE TO OPEN EYES SPONTANEOUSLY. NO ATTEMPTS AT SPEECH. ETT INTACT 7F AT 20 CM AT LIPLINE. TOLERATING SIMV SETTING WELL. ON SPECIAL MATTRESS WITH EXTREMITIES ELEVATED OFF BED WITH PILLOWS. TLC PER LEFT INT JUG. CVP ON DISTAL PORT. CVP CALIBRATED AND FLUSHED. WAVEFORM EASILY DAMPENS.
[2017-10-28] MEDS: LACTOBACILLUS RHAMNOSUS GG 1 EACH CAP.SPRINK PO SCH ×2 (08:34→16:43)
[2017-10-28] MEDS: ENOXAPARIN SODIUM 40 MG/0.4 ML DISP.SYRIN SQ SCH (08:35)
[2017-10-28] MEDS ORDERED: IV D5W 1,000 ML IV PRN (09:16)
--- NOTE | 2017-10-28 10:00 | NUR ---
SIGN CARPENTER SON HERE TO SEE PT. UPDATED GIVEN.
[2017-10-28 10:21] LABS: ABG BASE EXCESS -3.4 mmol/L; ABG PH 7.446 (7.350-7.450); ABG PO2 105.7 mmHg (75.0-100.0); COHb 0.5 % (0.5-1.5); MetHb 0.3 % (0.0-1.5); O2Hb 96.2 % (94.0-97.0); PEEP,BG 5 cm H2O; SITE, ABG Left Radial; VENT MODE, BG CPAP PS=12
[2017-10-28] MEDS ORDERED: POTASSIUM CL. PREMIX PERIPHER. 50 ML IV SCH (11:17)
[2017-10-28] MEDS ORDERED: POTASSIUM CHLORIDE 20 MEQ POWDER PACKET GT SCH (11:30)
--- NOTE | 2017-10-28 11:39 | NUR ---
RT NOTE: BLOODY SECRETIONS NOTED. SUCTION PRESSURE WAS DECREASED. NURSE(LISANDRA) NOTIFIED.
--- NOTE | 2017-10-28 12:00 | NUR ---
BRANCH CONTROLLER AWAITING KUB. NO NEW C/O. SUCTIONED. REPOSITIONED.
--- NOTE | 2017-10-28 14:00 | NUR ---
MINE INSPECTOR FEDERAL PT REMAINS ON CPAP. TOLERATING WELL. SPO2 CONSISTENTLY HIGH 90'S. NO CHANGE IN NEURO STATUS.
--- NOTE | 2017-10-28 15:56 | NUR ---
PATIENT RECEIVED ORALLY INTUBATED WITH 7.5 ETT SECURED AT 20 CM MID LIP LINE. ETT MOVED FROM LEFT TO RIGHT SIDE OF MOUTH VIA ANCHOR FAST. VENT CHANGES MADE PER MD ORDER. SUCTIONED AND LAVAGED LARGE AMOUNT THICK PETERS/BLOODY SECRETIONS. B/S=BILATERAL EXP. RHONCHI NOTED THROUGHOUT LUNGS. AMBU BAG AT [facility].
--- NOTE | 2017-10-28 16:00 | NUR ---
SECURITY SOLUTIONS ARCHITECT KUB DONE. AWAITING RESULTS. NO CHANGE IN NEURO STATUS. TOLERATING CPAP WELL.
[2017-10-28 16:32] LABS: HEMOGLOBIN 7.4 g/dL (11.5-14.8)
--- NOTE | 2017-10-28 18:00 | NUR ---
IT INFRASTRUCTURE MANAGER NEW SKIN TEAR NOTED ON LEFT ANKLE. PHOTOGRAPHED. CLEANED AND COVERED WITH MEPILEX. TOLERATING VENT SETTINGS. SPO2 CONSISTENTLY HIGH 90'S. HAD SMALL AMOUNT MUCOIOD STOOL. SAMPLE SENT FOR OB. FOLLOWUP CBC RESULT SIMILAR TO AM LABS. NO OVERT BLEEDING SEEN.
--- NOTE | 2017-10-28 19:30 | NUR ---
RN NOTES RECEIVED PT AWAKE. EYES OPEN BUT DOES NOT FOLLOW COMMAND. NON VERBAL WITH ETT 7.5 /20 CM @ LIP ON CPAP FIO2 35% PS 12 PEEP 5 TOLERATED WELL. SATING 100% REVEALS SR ON TELE MONITOR. IV SITE ON LIJ RUNNING WITH D5 W @ 50 CC/HR AND WITH CVP CALIBRATED. OGT CLAMPED AT THIS TIME WITH RESIDUAL OF 40 CC MILK CONTENT. NO ACTIVE BLEEDING NOTED F/C DRAINED WITH YELLOW CLEAR COLOR URINE. KEPT PT CLEAN AND COMFORTABLE IN BED. REPOSITIONED FOR SKIN MANAGEMENT. WILL CONTINUE TO MONITOR.
--- NOTE | 2017-10-28 20:53 | NUR ---
PT RECEIVED INTUBATED ON VENT. NO RESP DISTRESS. PT TOLERATING VENT SETTINGS. SX'D FOR MOD AMT OF THICK PETERS SECRETIONS. VENT ALARMS SET AND AUDIBLE. AMBU BAG AT BEDSIDE. WILL CONTINUE TO MONITOR. Addendum: 10/28/17 at 2055 by LISETTE MCKEE RT Amended: Links added.
[2017-10-28] MEDS: CEFAZOLIN 1 GM in IV NS 0.9% 50 ML IV SCH (21:29)
[2017-10-29] VITALS (26 sets, daily range): BP systolic 81–126; BP diastolic 43–92
[2017-10-29] MEDS: IPRATROPIUM NEB FS 0.5 MG/2.5 ML AMPUL.NEB NEB SCH ×6 (03:26→23:39)
[2017-10-29] MEDS: CEFAZOLIN 1 GM in IV NS 0.9% 50 ML IV SCH ×3 (04:59→21:24)
[2017-10-29 05:26] LABS: CALCIUM, SERUM 7.4 mg/dL (8.5-10.1); CARBON DIOXIDE 24 mmol/L (21-32); CHLORIDE 113 mmol/L (98-107); CREATININE 0.3 mg/dL (0.6-1.3); GLUCOSE 79 mg/dL (74-106); POTASSIUM 2.9 mmol/L (3.5-5.1); SODIUM SERUM 146 mmol/L (136-145); UREA NITROGEN, BLOOD 7 mg/dL (7-18)
--- NOTE | 2017-10-29 06:36 | NUR ---
RN NOTES PT REMAINED IN STABLE CONDITION THROUGHOUT THE SHIFT NO CHANGE OF CONDITION SHOWS. AFEBRILE. VS WNL. IV SITE ON LIJ TLC CONTINUE WITH IVF D5W @ 50 CC/HR AND CVP @ 7. RESPONSIVE TO NAME. CALIBRATED ORDERED. REMAINED SR ON TELE MONITOR. AFEBRILE. ALL DUE MEDICINE ADMINISTERED ORDERED WITHPUT ASE. PT IS CLEAN AND DRY. WILL ENDORSED CONTINUITY OF CARE TO AM NURSE.
[2017-10-29] MEDS ORDERED: POTASSIUM CHLORIDE 20 MEQ POWDER PACKET ONE (06:59)
[2017-10-29] MEDS: POTASSIUM CHLORIDE 20 MEQ POWDER PACKET GT SCH ×2 (07:00→07:18)
--- NOTE | 2017-10-29 07:15 | NUR ---
RN NOTES CALLED AND SPOKE WITH DR. DUMAS INFORMED ABOUT THE PATIENT POTASSIUM 2.9 WITH NEW ORDER OF KLOR CON 40 MEQ VIA GT ONCE. NOTED AND ACKNOWLEDGE THE ORDER.
--- NOTE | 2017-10-29 07:20 | NUR ---
RN NOTES ADMINISTERED KLOR CON 40 MEQ ORDERED
[2017-10-29] MEDS: FIBERSOURCE HN 1,000 ML BOTTLE GT PRN (07:26)
--- NOTE | 2017-10-29 08:08 | NUR ---
Received pt on mechanical vent (CPAP mode) and placed on CA per MD order. Addendum: 10/29/17 at 0810 by TASIA RM RT Amended: Links added.
--- NOTE | 2017-10-29 08:10 | NUR ---
RN NOTES CHANGED CPAP TO COOL AEROSOL BY RT SATING 97% HR 83 AT THIS TIME, NO ACUTE RESP DISTRESS. WILL CONT. TO MONITOR CLOSELY.
[2017-10-29] MEDS: LACTOBACILLUS RHAMNOSUS GG 1 EACH CAP.SPRINK PO SCH ×2 (08:56→17:00)
[2017-10-29] MEDS: ENOXAPARIN SODIUM 40 MG/0.4 ML DISP.SYRIN SQ SCH (08:58)
--- NOTE | 2017-10-29 09:00 | NUR ---
RN NOTES S/E BY NEGRETTE PHYSICS TUTOR AND UPDATE ABOUT THE PT. STATUS.
[2017-10-29 09:26] LABS: ABG BASE EXCESS -2.1 mmol/L; ABG OXYGEN SATURATION 94.8 % (92.0-98.5); ABG PCO2 32.2 mmHg (35.0-45.0); ABG PH 7.442 (7.350-7.450); AaDO2 134.1 mmHg; COHb 0.3 % (0.5-1.5); MetHb 0.5 % (0.0-1.5); SITE, ABG Left Radial; VENT MODE, BG CA 35%
[2017-10-29] MEDS ORDERED: Potassium Chloride 40 MEQ in IV D5W 1,000 ML IV PRN (09:36)
[2017-10-29 09:49] LABS: BASOPHILS % (AUTO) 0.3 % (0.0-2.0); EOSINOPHILS # (AUTO) 0.2 /CMM (0.0-0.7); EOSINOPHILS % (AUTO) 4.9 % (0.0-6.0); HEMATOCRIT 23 % (33-45); HEMOGLOBIN 7.8 g/dL (11.5-14.8); LYMPHOCYTES # (AUTO) 0.5 /CMM (0.8-4.8); LYMPHOCYTES % (AUTO) 13.3 % (20.0-44.0); MEAN CORPUSCULAR HEMOGLOBIN 31 PG (26.0-33.0); MEAN CORPUSCULAR HGB CONC 35 g/dl (31.0-36.0); MEAN CORPUSCULAR VOLUME 91 fL (82-100); MONOCYTES # (AUTO) 0.2 /CMM (0.1-1.30); MONOCYTES % (AUTO) 5.7 % (2.0-12.0); NEUTROPHILS # (AUTO) 2.8 /CMM (1.8-8.9); NEUTROPHILS % (AUTO) 75.8 % (43.0-81.0); PLATELET COUNT (AUTO) 132 /CMM (150-450); RDW COEFFICIENT OF VARIATION 14.1 (11.5-15.0); RED BLOOD CELL COUNT(AUTO) 2.49 MIL/uL (4.0-5.2); WHITE BLOOD COUNT (AUTO) 3.7 K/uL (4.3-11.0)
--- NOTE | 2017-10-29 10:05 | NUR ---
RN NOTES VISITED BY SON EUGENE AND INFORMED THAT DR. SABILLON WANTS TO TALK TO HIM REGARDING PLAN OF CARE.
--- NOTE | 2017-10-29 10:29 | NUR ---
RN NOTES PT REMAINED STABLE NO ACUTE RESP DISTRESS TOLERATED COOL AEROSOL WITH FIO2 35%. SATING 99% VS STABLE.
--- NOTE | 2017-10-29 12:00 | NUR ---
PACKAGER AND STRAPPER TOOK OVER CARE OF PT. RECEIVED PT INTUBATED, ON VENT AT CPAP. TOLERATING WELL. SPO2 STABLE. TF RESTARTED AT 20 ML/HR.
--- NOTE | 2017-10-29 14:00 | NUR ---
HOUSEKEEPING ASSOCIATE PT SUCTIONED AND REPOSITIONED. TOLERATING CPAP WELL. SPO2 STABLE IN HIGH 90'S.
[2017-10-29] MEDS ORDERED: DC PROPOFOL WHEN EXTUBATED XX PRN (15:00)
--- NOTE | 2017-10-29 16:00 | NUR ---
SENSITIZED PAPER TESTER NO NEW C/O. UPDATE GIVEN TO SON.
--- NOTE | 2017-10-29 17:00 | NUR ---
ANODISER PT EXTUBATED AND PLACED ON 3L NC AFTER FAMILY DISCUSSION WITH DR SABILLON REGARDING INEVITABLE TRACHEOSTOMY PLACEMENT GIVEN CONTINUED COURSE OF TREATMENT. PT TOLERATED WELL. OGT WAS TAKEN OUT ALONG WITH ETT. NO TF INFUSING NOW.
--- NOTE | 2017-10-29 17:01 | NUR ---
Pt extubated per MD order and placed on NC.
--- NOTE | 2017-10-29 19:50 | NUR ---
RN NOTES PT ASLEEP ON BED. RESPONSIVE TO TACTILE STIMULI, ON O2 3LPM VIA NC BREATHING EVEN AND UNLABORED. RHONCHI SOUND HEARD ON BILATERAL BREATH SOUND. RT SUCTIONED PT WITH PINKISH COLOR OF SECRETION. PT SATING 99% ZERO FLACC. AFEBRILE. SR HR 72 LIJ TLC WITH ONGOING IVF D5W + 40 MEQ KCL @ 50 CC/HR AND CVP. KEPT PT CLEAN AND DRY. REPOSITIONED FOR SKIN CARE. F/C DRAINED WITH YELLOW COLOR URINE. VIA GRAVITY. KEPT PT CLEAN AND COMFORTABLE ON BED. WILL FREQUENTLY MONITOR.
--- NOTE | 2017-10-29 23:48 | NUR ---
RN NOTES PER REPORT FROM PREVIOUS NURSE AND NOTES OF DR. SABILLON PT IS DNR/DNI. CODE STATUS UPDATED.
[2017-10-30] VITALS (13 sets, daily range): BP systolic 99–127; BP diastolic 50–82
--- NOTE | 2017-10-30 00:30 | NUR ---
RN NOTES NGT PLACED IN RIGHT NARES WITH PATENCY CHECKED WITH GURGLING SOUND. AND SOME RESIDUAL COMING UP. WITNESS BY ANOTHER RN LAINE. PT TOLERATED WELL WITHOUT SOB OR RESP DISTRESS
[2017-10-30] MEDS: IPRATROPIUM NEB FS 0.5 MG/2.5 ML AMPUL.NEB NEB SCH ×6 (03:41→23:11)
--- NOTE | 2017-10-30 05:15 | NUR ---
MAX NOTES GAVE NIDHI SLOAN ORDERED DUE TO COMPLAIN OF PAIN ON LEFT KNEE. Addendum: 10/30/17 at 0725 by MARÍA BENDER RN ....WRONG PATIENT...
[2017-10-30] MEDS: CEFAZOLIN 1 GM in IV NS 0.9% 50 ML IV SCH ×3 (05:32→21:28)
[2017-10-30] MEDS: FIBERSOURCE HN 1,000 ML BOTTLE GT PRN (06:33)
--- NOTE | 2017-10-30 06:57 | NUR ---
RN NOTES PT REMAINED IN STABLE CONDITION VS STABLE. NO ACUTER SPARKLE DISTRESS ON O2 3LPM VIA NC. SATING BETWEEN 96-99% NO FACIAL COMPLAIN OF PAIN. AFEBRILE. REMAINED SR HR 70'S. NGT TOLERATED WELL WITH MINIMAL RESIDUAL 5-10CC. HOB KEPT ELEVATED. LIJ TLC INTACT AND PATENT RUNNING WITH D5W+40 MEQ @ 50 CC/HR AND CVP INTACT AND RUNNING WELL. KEPT PT CLEAN AND COMFORTABLE IN BED. OFFLOADED EXT WITH PILLOWS. ENDORSED CONTINUITY OF CARE TO AM NURSE.
[2017-10-30 09:29] LABS: BASOPHILS % (AUTO) 0.1 % (0.0-2.0); EOSINOPHILS # (AUTO) 0.3 /CMM (0.0-0.7); EOSINOPHILS % (AUTO) 6.6 % (0.0-6.0); HEMATOCRIT 26 % (33-45); HEMOGLOBIN 8.7 g/dL (11.5-14.8); LYMPHOCYTES # (AUTO) 0.7 /CMM (0.8-4.8); LYMPHOCYTES % (AUTO) 16.6 % (20.0-44.0); MEAN CORPUSCULAR HEMOGLOBIN 31 PG (26.0-33.0); MEAN CORPUSCULAR HGB CONC 34 g/dl (31.0-36.0); MEAN CORPUSCULAR VOLUME 91 fL (82-100); MONOCYTES # (AUTO) 0.2 /CMM (0.1-1.30); MONOCYTES % (AUTO) 5.8 % (2.0-12.0); NEUTROPHILS % (AUTO) 70.9 % (43.0-81.0); PLATELET COUNT (AUTO) 164 /CMM (150-450); RDW COEFFICIENT OF VARIATION 14.9 (11.5-15.0); RED BLOOD CELL COUNT(AUTO) 2.82 MIL/uL (4.0-5.2); WHITE BLOOD COUNT (AUTO) 4.3 K/uL (4.3-11.0)
[2017-10-30] MEDS: LACTOBACILLUS RHAMNOSUS GG 1 EACH CAP.SPRINK PO SCH ×2 (09:37→17:59)
[2017-10-30] MEDS: ENOXAPARIN SODIUM 40 MG/0.4 ML DISP.SYRIN SQ SCH (09:37)
[2017-10-30 09:40] LABS: CALCIUM, SERUM 7.6 mg/dL (8.5-10.1); CARBON DIOXIDE 26 mmol/L (21-32); CHLORIDE 113 mmol/L (98-107); CREATININE 0.3 mg/dL (0.6-1.3); GLUCOSE 101 mg/dL (74-106); POTASSIUM 3.6 mmol/L (3.5-5.1); SODIUM SERUM 144 mmol/L (136-145); UREA NITROGEN, BLOOD 6 mg/dL (7-18)
--- NOTE | 2017-10-30 19:29 | NUR ---
RN NOTES RECEIVED PATIENT IN BED WITH EYES CLOSE, SON AT BEDSIDE. NO RESPIRATORY DISTRESS OR SHORTNESS OF BREATH. BREATHING EVEN AND UNLABORED. NO PHYSICAL MANIFESTATION OF PAIN OR DISCOMFORT. FEEDING ON HOLD FOR HIGH AMOUNT OF RESIDUAL UPON ENDORSEMENT. FC PATENT AND INTACT DRAINING CLEAR YELLOW WITH NO FOUL ODOR URINE. WILL CONTINUE TO MONITOR.
[2017-10-31] VITALS: BP 104/61
[2017-10-31] MEDS: IPRATROPIUM NEB FS 0.5 MG/2.5 ML AMPUL.NEB NEB SCH ×6 (03:43→22:57)
[2017-10-31 04:00] VITALS: BP 111/66
[2017-10-31] MEDS: CEFAZOLIN 1 GM in IV NS 0.9% 50 ML IV SCH ×3 (04:44→20:59)
--- NOTE | 2017-10-31 06:18 | NUR ---
RN CLOSING NOTES IN BED SLEEPING COMFORTABLY. NO DISTRESS NOTED. SUCTIONED LARGE AMOUNT OF SEMI LOOSE YELLOWISH SECRETION. NO SIGN OR SYMPTOM OF PAIN OR DISCOMFORT. VITAL SIGNS WNL. KEPT CLEAN AND DRY. WILL ENDORSE TO AM SHIFT FOR CONTINUITY OF CARE
[2017-10-31 08:00] VITALS: BP 120/61
[2017-10-31] MEDS: ENOXAPARIN SODIUM 40 MG/0.4 ML DISP.SYRIN SQ SCH (08:26)
[2017-10-31] MEDS: LACTOBACILLUS RHAMNOSUS GG 1 EACH CAP.SPRINK PO SCH ×2 (08:29→17:42)
[2017-10-31 12:00] VITALS: BP 105/52
[2017-10-31 14:10] LABS: BASOPHILS % (AUTO) 0.4 % (0.0-2.0); EOSINOPHILS # (AUTO) 0.1 /CMM (0.0-0.7); EOSINOPHILS % (AUTO) 1.7 % (0.0-6.0); HEMATOCRIT 26 % (33-45); HEMOGLOBIN 8.6 g/dL (11.5-14.8); LYMPHOCYTES # (AUTO) 0.9 /CMM (0.8-4.8); LYMPHOCYTES % (AUTO) 13.8 % (20.0-44.0); MEAN CORPUSCULAR HEMOGLOBIN 31 PG (26.0-33.0); MEAN CORPUSCULAR HGB CONC 34 g/dl (31.0-36.0); MEAN CORPUSCULAR VOLUME 92 fL (82-100); MONOCYTES # (AUTO) 0.4 /CMM (0.1-1.30); MONOCYTES % (AUTO) 5.7 % (2.0-12.0); NEUTROPHILS # (AUTO) 5.3 /CMM (1.8-8.9); NEUTROPHILS % (AUTO) 78.4 % (43.0-81.0); PLATELET COUNT (AUTO) 218 /CMM (150-450); RDW COEFFICIENT OF VARIATION 14.9 (11.5-15.0); WHITE BLOOD COUNT (AUTO) 6.7 K/uL (4.3-11.0)
[2017-10-31 14:27] LABS: CALCIUM, SERUM 8.1 mg/dL (8.5-10.1); CARBON DIOXIDE 27 mmol/L (21-32); CHLORIDE 110 mmol/L (98-107); CREATININE 0.4 mg/dL (0.6-1.3); GLUCOSE 109 mg/dL (74-106); POTASSIUM 3.7 mmol/L (3.5-5.1); SODIUM SERUM 143 mmol/L (136-145); UREA NITROGEN, BLOOD 9 mg/dL (7-18)
[2017-10-31] MEDS: FIBERSOURCE HN 1,000 ML BOTTLE GT PRN (15:08)
[2017-10-31 16:00] VITALS: BP 108/58
--- NOTE | 2017-10-31 16:15 | NUR ---
ULTRASOUND GUIDED THORACENTESIS CONSENT SIGNED. DAUGHTER AND SON ARE IN AGREEMENT FOR PROCEDURE.
--- NOTE | 2017-10-31 19:00 | NUR ---
MS RN NOTE PATIENT RESTING IN BED, OPENS EYES, DAUGTHER AT BEDSIDE, IN STABLE, NO ACUTE DISTRESS NOTED. BREATHING EVEN AND UNLABORED, NO SOB NOTED. BED LOCKED AND IN LOWEST POSITION, CALL LIGHT IN REACH. WILL CONTINUE TO MONITOR. Addendum: 11/01/17 at 0622 by FLORY AGUILERA RN ADDENDUM: FEEDING ON HOLD UPON ENDORSEMENT PER DAY SHIFT RN 180 CC RESIDUAL AT 1750 WILL MTR,.
[2017-10-31 20:00] VITALS: BP_SYST 117; BP_SYST 123; BP_DIAS 51; BP_DIAS 55
--- NOTE | 2017-10-31 20:00 | NUR ---
MS RN NOTES CHECK PATENCY OF THE NGT, 0 RESIDUAL. WILL START FEEDING
[2017-11-01] MEDS: IPRATROPIUM NEB FS 0.5 MG/2.5 ML AMPUL.NEB NEB SCH ×6 (03:02→22:56)
[2017-11-01 04:00] VITALS: BP 132/57
[2017-11-01] MEDS: CEFAZOLIN 1 GM in IV NS 0.9% 50 ML IV SCH ×3 (04:05→21:11)
--- NOTE | 2017-11-01 06:17 | NUR ---
MS RN CLOSING NOTES PT ASLEEP AND EASILY AWAKEN, PT ON 4LPM VIA NC 02 SAT 98% NO S/S OF DISTRESS, STABLE CONDITION. RESPIRATION EVEN AND UNLABORED. NGT TO THE R NARES INTACT AND PATENT FIBERSOURCE 45CC/HR INFUSING WELL WITH 0 RESIDUAL. F/C INTACT DRAINING YELLOW VIA GRAVITY WITH NO SEDIMENTS NO HEMATURIA NO CLOUDINESS. GOOD SKIN CARE PROVIDED. ALL NURSING CARE RENDERED. NEEDS ATTENDED AND ANTICIPATED, KEPT CLEAN AND DRY AND COMFORTABLE, FREQUENT VISUAL CHECK DONE FOR SAFETY EVERY 2 HOURS. REPOSITION Q2H. OFFLOAD HEELS AND ELBOWS. ON LOW BED AT ALL TIMES TO ENSURE SAFETY. SAFE HAZARD FREE ENVIRONMENT PROVIDED. CALL LIGHT WITHIN EASY TO REACH. WILL ENDORSE NEXT SHIFT CONTINUITY OF CARE
--- NOTE | 2017-11-01 07:05 | NUR ---
RN INITIAL NOTE PATIENT RECEIVED IN BED, SLEEPING. NO S/S OF PAIN OR DISCOMFORT. PATIENT IS NONVERBAL, OPENS EYES. RESPIRATIONS ARE EVEN AND UNLABORED. SATING WELL ON 2L NASAL CANULA. NO S/S OF RESPIRATORY DISTRESS OR SOB. LING CATHETER DRAINING TO GRAVITY. SKIN IS WARM AND DRY TO TOUCH. IV SITE FLUSHED, PATENT. NGT FLUSHED, PATENT, PLACEMENT VERIFIED. FIBERSOURCE RUNNING AT 45ML/HR, FEEDING HELD DUE TO HIGH RESIDUALS. SAFETY PRECAUTIONS IN PLACE, BED IN LOCKED, LOW POSITION WITH TWO SIDE RAILS UP. CALL LIGHT AND BELONGINGS WITHIN EASY REACH. WILL CONTINUE TO MONITOR.
[2017-11-01 08:00] VITALS: BP 116/51
[2017-11-01] MEDS: LACTOBACILLUS RHAMNOSUS GG 1 EACH CAP.SPRINK PO SCH ×2 (08:42→17:18)
[2017-11-01] MEDS: ENOXAPARIN SODIUM 40 MG/0.4 ML DISP.SYRIN SQ SCH (08:45)
[2017-11-01 16:00] VITALS: BP 111/63
[2017-11-01 20:00] VITALS: BP 124/69
--- NOTE | 2017-11-01 21:00 | NUR ---
AASP PRECAUTION HOB KEPT ELEVATED. NGT RT NOSTRIL CHECKED FOR PLACEMENT VIA AUSCULTATION AND AUDIBLE IN PLACE RESIDUAL 35 ML FEEDING CONTINUED. WHEN HER NAME WAS SPOKEN SHE OPENED HER EYES AND GAVE MY EYE CONTACT APPEARS COMFORTABLE FEET SWOLLEN ELEVATED X2 PILLOWS HANDS SWOLLEN ELEVATED X1 PILLOW
[2017-11-01 23:51] VITALS: BP 124/69
[2017-11-02] MEDS: IPRATROPIUM NEB FS 0.5 MG/2.5 ML AMPUL.NEB NEB SCH ×6 (03:27→22:56)
--- NOTE | 2017-11-02 03:30 | NUR ---
NGT CHECKED FOR RESIDUAL 100ML FEEDING STOPPED ASP PRECAUTIONS. mD IS AWARE BY READING HIS NOTES THAT PATIENT HAVING LARGE RESIDUALS WILL CONTINUE TO MONITER THEM AND CHART
[2017-11-02 04:37] VITALS: BP 122/68
[2017-11-02] MEDS: CEFAZOLIN 1 GM in IV NS 0.9% 50 ML IV SCH ×3 (04:44→21:50)
--- NOTE | 2017-11-02 04:50 | NUR ---
PATIENT THRU THE NIGHT WOULD OPEN EYES AND HAVE EYE CONTACT WITH T HE NURSE WHEN HER NAME WAS SPOKEN. ASP PRECAUTION HIGH D/T SHE HAS HIGH RESIDUALS WITH HER NGT FEEDING LATEST AT 0400 RESIDUALS 120ML FEEDING HELD ARMS HANDS FEET AND ANKLES SWOLLEN IN HER CHART IS ANCONSENT FOR A U/S GUIDED THORACENTISI FOR 11/02 D/T LEFT PLEURAL EFFUSION THRU THE NIGHT PATIENT HAS A HEART RATE 100-112 SATS ON 4L 94 - 98%
[2017-11-02 06:49] LABS: BASOPHILS % (AUTO) 0.1 % (0.0-2.0); EOSINOPHILS # (AUTO) 0.1 /CMM (0.0-0.7); EOSINOPHILS % (AUTO) 1.7 % (0.0-6.0); HEMATOCRIT 25 % (33-45); HEMOGLOBIN 8.4 g/dL (11.5-14.8); LYMPHOCYTES # (AUTO) 0.7 /CMM (0.8-4.8); LYMPHOCYTES % (AUTO) 9.1 % (20.0-44.0); MEAN CORPUSCULAR HEMOGLOBIN 32 PG (26.0-33.0); MEAN CORPUSCULAR HGB CONC 34 g/dl (31.0-36.0); MEAN CORPUSCULAR VOLUME 93 fL (82-100); MONOCYTES # (AUTO) 0.4 /CMM (0.1-1.30); MONOCYTES % (AUTO) 5.9 % (2.0-12.0); NEUTROPHILS # (AUTO) 6.1 /CMM (1.8-8.9); NEUTROPHILS % (AUTO) 83.2 % (43.0-81.0); PLATELET COUNT (AUTO) 262 /CMM (150-450); RED BLOOD CELL COUNT(AUTO) 2.66 MIL/uL (4.0-5.2); WHITE BLOOD COUNT (AUTO) 7.3 K/uL (4.3-11.0)
[2017-11-02 07:05] LABS: CALCIUM, SERUM 7.8 mg/dL (8.5-10.1); CARBON DIOXIDE 32 mmol/L (21-32); CHLORIDE 111 mmol/L (98-107); CREATININE 0.3 mg/dL (0.6-1.3); GLUCOSE 122 mg/dL (74-106); POTASSIUM 3.3 mmol/L (3.5-5.1); SODIUM SERUM 146 mmol/L (136-145); UREA NITROGEN, BLOOD 12 mg/dL (7-18)
--- NOTE | 2017-11-02 07:30 | NUR ---
MS RN OPENING NOTES RECEIVED PATIENT IN STABLE CONDITION. IN NO APPARENT DISTRESS. PATIENT IS RESTING IN BED. CALL LIGHT IS WITHIN REACH. IV IS PATENT AND INTACT. WILL CONTINUE TO MONITOR.
[2017-11-02 07:31] LABS: INR 0.98 (0.87-1.13)
[2017-11-02 08:00] VITALS: BP 134/70
[2017-11-02] MEDS: ENOXAPARIN SODIUM 40 MG/0.4 ML DISP.SYRIN SQ SCH (09:00)
--- NOTE | 2017-11-02 09:00 | NUR ---
HELD LOVENOX. PATIENT IS SCHEDULED FOR A US GUIDED PARACENTESIS THIS MORNING.
[2017-11-02] MEDS: LACTOBACILLUS RHAMNOSUS GG 1 EACH CAP.SPRINK PO SCH ×2 (09:09→16:12)
[2017-11-02] MEDS ORDERED: POTASSIUM CHLORIDE 20 MEQ POWDER PACKET GT SCH (12:00)
--- NOTE | 2017-11-02 14:00 | NUR ---
INFORMED LUKE GARDINER THAT PATIENTS MEDICATION RECONCILIATION HAS NOT BEEN DONE. LUKE GARDINER WILL FOLLOW UP.
[2017-11-02] MEDS ORDERED: POTASSIUM CHLORIDE 20 MEQ POWDER PACKET GT ONE (15:30)
[2017-11-02] MEDS ORDERED: FUROSEMIDE 20 MG/2 ML VIAL IV ONE (15:30)
[2017-11-02 16:00] VITALS: BP 101/62
--- NOTE | 2017-11-02 18:50 | NUR ---
MS RN CLOSING NOTES PATIENT IS IN STABLE CONDITION. IN NO APPARENT DISTRESS. ALL NEEDS WERE MET. BEDSIDE RAILS ARE UPX 2. BED IS LOCKED AND LOWERED. CALL LIGHT IS WITHIN REACH. IV IS PATENT AND INTACT. WILL ENDORSE CARE TO SEED EXPERT NURSE FOR NUSRAT.
[2017-11-02 20:00] VITALS: BP 111/59
--- NOTE | 2017-11-03 03:00 | NUR ---
RN NOTES TRANSFER Patient transferred to Med/Surg 2, reported to MAX Martinez. Patient in no apparent distress. Son Peter made aware of the transfer.
[2017-11-03 03:15] VITALS: BP 108/65
--- NOTE | 2017-11-03 03:15 | NUR ---
RN NOTES ADMITTED PT FROM [facility]IA [facility]ITAL BED, PT AWAKE, NON VERBAL. ON 4LPM O2 VIA NC AND TOLERATED WELL. NGT INTACT, PLACEMENT CHECKED. LING CATHETER INTACT WITH CLEAR URINE OUTPUT NOTED. SKIN AND BODY ASSESSMENT DONE, WITH EDEMA ON UPPER AND LOWER EXTREMITY. WILL RESTART NGT FEEDING. KEPT PT CLEAN AND DRY. WILL TURN AND REPOSITION PTAS SCHEDULED. WILL CONTINUE TO MONITOR PT.
[2017-11-03] MEDS: IPRATROPIUM NEB FS 0.5 MG/2.5 ML AMPUL.NEB NEB SCH ×6 (03:30→23:32)
[2017-11-03] MEDS: CEFAZOLIN 1 GM in IV NS 0.9% 50 ML IV SCH ×3 (05:11→20:49)
[2017-11-03] MEDS: FIBERSOURCE HN 1,000 ML BOTTLE GT PRN (06:36)
--- NOTE | 2017-11-03 07:45 | NUR ---
RN NOTES PT ASLEEP, HOB ELEVATED, ON 4LPM VIA NC WITH GOOD SATURATION. VITAL SIGNS STABLE. GT FEEDING TOLERATED WELL. TURNED AND REPOSITION Q2H. KEPT PT CLEAN AND DRY. NO SIGNIFICANT CHANGE IN CONDITION NOTED. ENDORSED TO MORNING RN FOR CONTINUITY OF CARE.
--- NOTE | 2017-11-03 07:48 | NUR ---
MS/RN Patient received Patient received from commercial tire service technician. Appears comfortable at this time, in no distress. NGT placement checked and feeding continues as ordered, no residual. Vital signs stable and within normal limits. Bed in low setting, side rails X3 in upright position, call light within reach. Will continue to monitor and ensure safety.
[2017-11-03 08:00] VITALS: BP 104/66
[2017-11-03 08:12] LABS: CALCIUM, SERUM 7.8 mg/dL (8.5-10.1); CARBON DIOXIDE 32 mmol/L (21-32); CHLORIDE 103 mmol/L (98-107); CREATININE 0.4 mg/dL (0.6-1.3); GLUCOSE 115 mg/dL (74-106); POTASSIUM 4.5 mmol/L (3.5-5.1); SODIUM SERUM 141 mmol/L (136-145); UREA NITROGEN, BLOOD 12 mg/dL (7-18)
[2017-11-03] MEDS: LACTOBACILLUS RHAMNOSUS GG 1 EACH CAP.SPRINK PO SCH ×2 (08:30→16:54)
[2017-11-03] MEDS: ENOXAPARIN SODIUM 40 MG/0.4 ML DISP.SYRIN SQ SCH (08:34)
--- NOTE | 2017-11-03 09:34 | NUR ---
MS/RN Medications Morning medications administered as ordered via GT.
--- NOTE | 2017-11-03 10:00 | NUR ---
MS/RN S/B Speech therapist Unable to complete bedside swallow evaluation due to patient being unable to follow simple commands. Will reassess tomorrow.
--- NOTE | 2017-11-03 12:00 | NUR ---
MS/basket assembler update Son at bedside, updated as to plan of care. Informed by son that he has been feeding his mother baby food, stating that he was doing this before she was admitted to the hospital and that she was taking the food without any coughing or chocking. Informed son as to the risks involved in doing this, per son, stated that he understood and would not do this any further.
--- NOTE | 2017-11-03 13:38 | NUR ---
MS/RN RT Seen by RT - patient suctioned, small amount of secretions removed. Patient continues to sound congested but no furthersuction at this time as patient experiencing slight nasal bleeding.
[2017-11-03 16:00] VITALS: BP 114/62
--- NOTE | 2017-11-03 18:36 | NUR ---
MS/RN End note All needs attended, turned and repositioned every 2-3 hours. NGT remains in place, no residual from feedings. Will endorse to awake overnight monitor.
--- NOTE | 2017-11-03 19:29 | NUR ---
MS RN NOTE: PATIENT RESTING IN BED, NON VERBAL OPENS EYES NGT PATENT AN INTACT, IN STABLE, NO ACUTE DISTRESS NOTED. BREATHING EVEN AND UNLABORED, NO SOB NOTED. BED LOCKED AND IN LOWEST POSITION, CALL LIGHT IN REACH. WILL CONTINUE TO MONITOR.
[2017-11-03 20:00] VITALS: BP 106/53
[2017-11-04] MEDS: FIBERSOURCE HN 1,000 ML BOTTLE GT PRN (02:51)
[2017-11-04] MEDS: IPRATROPIUM NEB FS 0.5 MG/2.5 ML AMPUL.NEB NEB SCH ×6 (03:47→23:45)
[2017-11-04] MEDS: CEFAZOLIN 1 GM in IV NS 0.9% 50 ML IV SCH ×3 (04:24→20:37)
--- NOTE | 2017-11-04 06:55 | NUR ---
MS RN CLOSING NOTES PT ASLEEP AND EASILY AWAKEN, HOB ELEVATED AT ALL TIMES. 4LPM VIA NC 02 SAT 96% STABLE CONDITION. NO S/S OF DISTRESS, RESPIRATION EVEN AND UNLABORED. NGT TO THE R NARES INTACT AND PATENT FIBERSOURCE 45CC/HR INFUSING WELL WITH 0 RESIDUAL. ALL NURSING CARE RENDERED. NEEDS ATTENDED AND ANTICIPATED, KEPT CLEAN AND DRY AND COMFORTABLE, FREQUENT VISUAL CHECK DONE FOR SAFETY EVERY 2 HOURS. REPOSITION Q2H. F/C INTACT DRAINING YELLOW VIA GRAVITY WITH NO SEDIMENTS NO HEMATURIA NO CLOUDINESS. GOOD SKIN CARE PROVIDED. OFFLOAD HEELS AND ELBOWS. ON LOW BED AT ALL TIMES TO ENSURE SAFETY. SAFE HAZARD FREE ENVIRONMENT PROVIDED. CALL LIGHT WITHIN EASY TO REACH. WILL ENDORSE NEXT SHIFT CONTINUITY OF CARE
--- NOTE | 2017-11-04 07:30 | NUR ---
RN MS NOTES PT IN BED, RESTING, EYES CLOSED, NON VERBAL, WITH NGT INFUSING WELL, TOLERATING WELL, IV AT LEFT IJ INTACT AND PATENT, KEPT WARM AND COMFORTABLE.
[2017-11-04 08:00] VITALS: BP 119/58
[2017-11-04] MEDS: LACTOBACILLUS RHAMNOSUS GG 1 EACH CAP.SPRINK PO SCH ×2 (09:39→17:50)
[2017-11-04] MEDS: ENOXAPARIN SODIUM 40 MG/0.4 ML DISP.SYRIN SQ SCH (09:44)
[2017-11-04] MEDS ORDERED: IV NS 0.9% 1,000 ML IV PRN (15:30)
[2017-11-04 16:00] VITALS: BP 121/67
--- NOTE | 2017-11-04 18:30 | NUR ---
RN MS NOTES PT IN BED, RESTING, NO SIGN OF PAIN OR DISTRESS, IV FLUIDS INFUSING WELL, SEEN BY KRISTINA TUBE BENDING MACHINE OPERATOR, PLAN OF CARE DISCUSSED AT LENGTH WITH PT'S SON EUGENE, PLAN FOR EGD WITH PEG, PER EUGENE, FAMILY WILL DISCUSS ABOUT IT, GI CONSULT DONE, PM MEDS GIVEN ORDERED, TOLERATING CURRENT NGT FEEDING WELL, PM CARE RENDERED, TURNED AND REPOSITIONED Q2 HRS.
[2017-11-04 20:00] VITALS: BP 120/65
[2017-11-05] MEDS ORDERED: IV NS 0.9% 1,000 ML BAG IV SCH
[2017-11-05] MEDS: IPRATROPIUM NEB FS 0.5 MG/2.5 ML AMPUL.NEB NEB SCH ×4 (02:29→16:22)
[2017-11-05] MEDS: CEFAZOLIN 1 GM in IV NS 0.9% 50 ML IV SCH ×2 (04:39→13:00)
--- NOTE | 2017-11-05 06:59 | NUR ---
RN/MS NOTES: CALLED AND SPOKE TO EUGENE THIS MORNING, CLARIFIED PROCEDURE TODAY, HE STATED THAT HE IS NOT EXPRCTING ANY PROCEDURE FOR TODAY, AND NO TUBE TO BE PLACED TO HIS MOTHER. DAY MAX PACKER MADE AWARE.
[2017-11-05 07:03] LABS: CALCIUM, SERUM 7.5 mg/dL (8.5-10.1); CARBON DIOXIDE 31 mmol/L (21-32); CHLORIDE 102 mmol/L (98-107); CREATININE 0.4 mg/dL (0.6-1.3); GLUCOSE 111 mg/dL (74-106); POTASSIUM 4.3 mmol/L (3.5-5.1); SODIUM SERUM 139 mmol/L (136-145); UREA NITROGEN, BLOOD 14 mg/dL (7-18)
[2017-11-05 07:09] LABS: BASOPHILS % (AUTO) 0.2 % (0.0-2.0); EOSINOPHILS # (AUTO) 0.1 /CMM (0.0-0.7); EOSINOPHILS % (AUTO) 2.1 % (0.0-6.0); HEMATOCRIT 23 % (33-45); HEMOGLOBIN 7.8 g/dL (11.5-14.8); LYMPHOCYTES # (AUTO) 0.9 /CMM (0.8-4.8); LYMPHOCYTES % (AUTO) 12.5 % (20.0-44.0); MEAN CORPUSCULAR HEMOGLOBIN 31 PG (26.0-33.0); MEAN CORPUSCULAR HGB CONC 34 g/dl (31.0-36.0); MEAN CORPUSCULAR VOLUME 93 fL (82-100); MONOCYTES # (AUTO) 0.5 /CMM (0.1-1.30); MONOCYTES % (AUTO) 7.5 % (2.0-12.0); NEUTROPHILS # (AUTO) 5.4 /CMM (1.8-8.9); NEUTROPHILS % (AUTO) 77.7 % (43.0-81.0); PLATELET COUNT (AUTO) 284 /CMM (150-450); RDW COEFFICIENT OF VARIATION 15.8 (11.5-15.0); RED BLOOD CELL COUNT(AUTO) 2.48 MIL/uL (4.0-5.2)
--- NOTE | 2017-11-05 07:30 | NUR ---
MS/RN Patient received Patient received from shift engineer. Patient NPO at this time for possible PEG placement later today. Son Peter called to obtain telephone consent. Per son, they family do not wish to proceed with feeding tube placement or EGD at this time. Will inform MD. All needs attended at this time, safety measures in place, will continue to monitor and ensure safety.
[2017-11-05 08:15] VITALS: BP 97/52
[2017-11-05] MEDS: LACTOBACILLUS RHAMNOSUS GG 1 EACH CAP.SPRINK PO SCH (08:52)
[2017-11-05] MEDS: ENOXAPARIN SODIUM 40 MG/0.4 ML DISP.SYRIN SQ SCH (08:53)
--- NOTE | 2017-11-05 08:53 | NUR ---
MS/RN Anitranox Lovenox held at this time as patient for surgery later today.
--- NOTE | 2017-11-05 11:38 | NUR ---
MS/RN S/B Thor White MANAGER DIALYSIS Seen by MANAGER DIALYSIS - patient for possible discharge later today if family still continue to refuse GT placement. mortgage manager to speak with son.
--- NOTE | 2017-11-05 11:52 | NUR ---
MS/mixed crop and livestock farm worker controller operations and hr manager spoke with son, patient to be discharged back to SNF later today, NGT to be removed.
--- NOTE | 2017-11-05 14:09 | NUR ---
MS/RN Pictures Pictures taken ready for discharge, shredder picker scheduled for 5p.
--- NOTE | 2017-11-05 14:42 | NUR ---
MS/RN Report Report called to Danii at [facility], picked edge sewing machine operator scheduled for 5p.
[2017-11-05 16:00] VITALS: BP 122/66
--- NOTE | 2017-11-05 17:35 | NUR ---
MS/hair or beauty salon assistant Patient discharged to SNF in stable condition. TLC removed prior to leaving. All personal belongings taken by son and signed off on belongings list. Left via ambulance.
== END 2017-11-05 16:30 | DRG 870 ==
LOC: MEDSG1 18:59 → TELE-TD 21:29 → TELE1 10-24 09:58 → ICU 10-24 14:06 → TELE1 10-30 12:25 → MEDSG1 10-31 11:30 → MEDSG2 11-03 03:02
PROVIDERS: ADMIT Nurse Practitioner Acute Care; ATTEND Nurse Practitioner Acute Care
PROC: 5A1955Z Respiratory Ventilation, Greater than 96 Consecutive Hours (ICD-10-PCS; principal; 2017-10-24)
PROC: 0BH17EZ Insertion of Endotracheal Airway into Trachea, Via Natural or Artificial Opening (ICD-10-PCS; 2017-10-24)
PROC: 05HN33Z Insertion of Infusion Device into Left Internal Jugular Vein, Percutaneous Approach (ICD-10-PCS; 2017-10-24)
PROC: B544ZZA Ultrasonography of Left Jugular Veins, Guidance (ICD-10-PCS; 2017-10-24)
PROC: 0W9B3ZZ Drainage of Left Pleural Cavity, Percutaneous Approach (ICD-10-PCS; 2017-11-02)
DX: A41.9 Sepsis, unspecified organism (principal); I21.A1 Myocardial infarction type 2; J96.01 Acute respiratory failure with hypoxia; J69.0 Pneumonitis due to inhalation of food and vomit; N17.0 Acute kidney failure with tubular necrosis; E43 Unspecified severe protein-calorie malnutrition; G92 Toxic encephalopathy; J90 Pleural effusion, not elsewhere classified; R65.21 Severe sepsis with septic shock; G93.41 Metabolic encephalopathy; I50.31 Acute diastolic (congestive) heart failure; D68.59 Other primary thrombophilia; E87.0 Hyperosmolality and hypernatremia; E87.2 Acidosis; N39.0 Urinary tract infection, site not specified; I82.621 Acute embolism and thrombosis of deep veins of right upper extremity; E66.01 Morbid (severe) obesity due to excess calories; D63.8 Anemia in other chronic diseases classified elsewhere; D69.6 Thrombocytopenia, unspecified; E83.39 Other disorders of phosphorus metabolism; E87.6 Hypokalemia; I25.2 Old myocardial infarction; Z86.718 Personal history of other venous thrombosis and embolism; F03.90 Unspecified dementia, unspecified severity, without behavioral disturbance, psychotic disturbance, mood disturbance, and anxiety; E88.09 Other disorders of plasma-protein metabolism, not elsewhere classified; E86.0 Dehydration; R13.10 Dysphagia, unspecified; M19.90 Unspecified osteoarthritis, unspecified site; Z66 Do not resuscitate; Z68.25 Body mass index [BMI] 25.0-25.9, adult
CPT/HCPCS: 31720; 36415; 36600; 70450-TC; 71045-TC; 74018; 76942-TC; 80048-TC; 80053-TC; 80061-TC; 80202-TC; 81000-TC; 82248-TC; 82272-TC; 82570-TC; 82803-TC; 83605-TC; 83735-TC; 83935-TC; 84100-TC; 84155-TC; 84295-TC; 84300-TC; 84484-TC; 85025-TC; 85027-TC; 85610-TC; 87040-TC; 87070-TC; 87081-TC; 87086-TC; 87400; 93307-TC; 93970-TC; 93971-TC; 94002-TC; 94003-TC; 94640-TC; 94664-TC; 94760-TC; 94762-TC; 94799-TC; A4216; A4217; A4606; A6402; A9563; C1751; J0690; J0696; J1650; J1940; J1956; J2543; J3370; J3475; J3480; J3490; J7030; J7040; J7050; J7060; J7070; P9047; Z7610

== ENCOUNTER 2017-11-10 21:14 | Inpatient (IN) | payer MEDICARE, OTHER ==
[~2017-11-10] VITALS: Ht 165.1 cm; Wt 52.8 kg
[2017-11-10] MEDS: ENOXAPARIN SODIUM 40 MG/0.4 ML DISP.SYRIN SQ SCH (09:00)
[~2017-11-10 21:14] MED LIST: ACET-868 PO; ALBU2.5V13 NEB; BLOO-140 IN; DONE10TA44 PO; MAG30ORA PO; MELA3TAB PO; MEMA10TA PO; PANT40TA4 PO; POLY17PO4 PO; SORB30SO2 PO
--- NOTE | 2017-11-10 21:20 | NUR ---
Note undone in EDM - 11/10/17 at 2148 by RIAZ PT BIBRA FOR FEVER AND LOW SP02. PT NONVERBAL, EYES OPEN. PT RESPONSIVE TO PAIN. RR EVEN AND UNLABORED. NO SOB NOTED. NO NVD AT THIS TIME. PT GOWNED AND PLACED ON MONITOR WAITING FOR MD GONZALEZ.
--- NOTE | 2017-11-10 21:20 | NUR ---
PT BIBRA FOR FEVER AND LOW SP02. PT NONVERBAL, EYES OPEN. PT RESPONSIVE TO PAIN. NOTED SOB NOTED. PT PLACED ON NON REBREATHER 15LPM 02 SAT 94%. NO NVD AT THIS TIME. PT GOWNED AND PLACED ON MONITOR WAITING FOR MD GONZALEZ.
--- NOTE | 2017-11-10 21:21 | NUR ---
Leila gentile in ED - 11/10/17 at 2146 by RIAZ PT WITH IV ON LEFT HAND 24G PLACED PER SNF.
--- NOTE | 2017-11-10 21:21 | NUR ---
PT WITH IV ON LEFT HAND 24G PLACED PER SNF. PT ALSO WITH F/C PLACED SPECIALTY DEVELOPMENT CONSULTANT.
[2017-11-10] MEDS ORDERED: IV NS 0.9% 1,000 ML BAG IV ONE (21:30)
[2017-11-10 21:43] LABS: BASOPHILS % (AUTO) 0.4 % (0.0-2.0); EOSINOPHILS # (AUTO) 0.1 /CMM (0.0-0.7); EOSINOPHILS % (AUTO) 1.6 % (0.0-6.0); HEMATOCRIT 25 % (33-45); HEMOGLOBIN 8.4 g/dL (11.5-14.8); LYMPHOCYTES # (AUTO) 0.9 /CMM (0.8-4.8); LYMPHOCYTES % (AUTO) 11.3 % (20.0-44.0); MEAN CORPUSCULAR HEMOGLOBIN 32 PG (26.0-33.0); MEAN CORPUSCULAR HGB CONC 34 g/dl (31.0-36.0); MEAN CORPUSCULAR VOLUME 93 fL (82-100); MONOCYTES # (AUTO) 0.5 /CMM (0.1-1.30); MONOCYTES % (AUTO) 6.7 % (2.0-12.0); NEUTROPHILS # (AUTO) 6.4 /CMM (1.8-8.9); PLATELET COUNT (AUTO) 405 /CMM (150-450); RED BLOOD CELL COUNT(AUTO) 2.65 MIL/uL (4.0-5.2)
[2017-11-10 21:56] LABS: CALCIUM, SERUM 8.1 mg/dL (8.5-10.1); CARBON DIOXIDE 31 mmol/L (21-32); CHLORIDE 101 mmol/L (98-107); CREATININE 0.8 mg/dL (0.6-1.3); GLUCOSE 148 mg/dL (74-106); POTASSIUM 4.4 mmol/L (3.5-5.1); SODIUM SERUM 136 mmol/L (136-145); UREA NITROGEN, BLOOD 15 mg/dL (7-18)
[2017-11-10] MEDS ORDERED: PIPERACILLIN /TAZOBACTAM 3.375 G in IV D5W 50 ML IV ONE (22:00)
[2017-11-10] MEDS ORDERED: ACETAMINOPHEN ES 500 MG TABLET PO ONE (22:00)
[2017-11-10 22:03] LABS: ALANINE AMINOTRANSFERASE 16 U/L (12-78); ALBUMIN 1.9 g/dL (3.4-5.0); ALKALINE PHOSPHATASE 318 U/L (46-116); ASPARTATE AMINOTRANSFERASE 25 U/L (15-37); BILIRUBIN,DIRECT 0.1 mg/dL (0.0-0.2); BILIRUBIN,TOTAL 0.3 mg/dL (0.2-1.0); TROPONIN I 0.022 ng/mL (0.00-0.056)
--- NOTE | 2017-11-10 22:07 | NUR ---
NEW 16FR LING PLACED PER MD ORDER. URINE COLLECTED. SENT TO LAB
[2017-11-10] MEDS ORDERED: PIPERACILLIN /TAZOBACTAM 3.375 G VIAL IV ONE (22:09)
[2017-11-10] MEDS ORDERED: ACETAMINOPHEN 650 MG/SUPP.RECT RC ONE ×2 (22:09→22:30)
--- NOTE | 2017-11-10 22:14 | NUR ---
DR. KENDALL AT BEDSIDE FOR EVAL.
[2017-11-10] MEDS ORDERED: IOHEXOL-350 100 ML VIAL IV ONE (22:30)
[2017-11-10] MEDS ORDERED: LEVOFLOXACIN 750 MG /D5W 150ML 750 MG in PREMIX 1 EA IV SCH (22:30)
[2017-11-10] MEDS ORDERED: CT SWABBABLE VALVE TRANS SET 1 EA INFUS.SET MC ONE (22:30)
[2017-11-10] MEDS ORDERED: IV NS 0.9% 500 ML IV ONE (22:31)
--- NOTE | 2017-11-10 22:42 | NUR ---
PT TO CT
[2017-11-10 22:56] LABS: APPEARANCE,URINE CLOUDY (CLEAR); BILIRUBIN,URINE NEGATIVE (NEGATIVE); BLOOD, URINE TRACE-INTA Ery/uL (NEGATIVE); COLOR,URINE YELLOW (YELLOW); KETONES,URINE NEGATIVE (NEGATIVE); LEUKOCYTE ESTERASE ,URINE 3+ (NEGATIVE); NITRITE, URINE NEGATIVE (NEGATIVE); PH,URINE 5.5 (5.0-8.0); PROTEIN,URINE NEGATIVE (NEGATIVE); UGLUCOSE NEGATIVE (NEGATIVE); UROBILINOGEN,URINE 0.2 EU/dL (0.2)
--- NOTE | 2017-11-10 22:58 | NUR ---
PT RETURNED FROM CT.
[2017-11-10 23:00] LABS: BACTERIA,URINE Many /HPF (None Seen); RBC,URINE 0-2 /HPF (0-2); SQUAMOUS EPITHELIAL CELL,UR Few /HPF (None Seen); WBC,URINE TOO NUMEROUS TO COUN /HPF (0-3); YEAST,URINE Hyphal filaments /HPF (None Seen)
--- NOTE | 2017-11-10 23:03 | NUR ---
DR. COLE AT BEDSIDE FOR EVAL.
[2017-11-10] MEDS ORDERED: LEVOFLOXACIN 750 MG /D5W 150ML 150 ML IV ONE (23:11)
[2017-11-10] MEDS ORDERED: ONDANSETRON HCL/PF 4 MG/2 ML VIAL IVP PRN (23:30)
[2017-11-10] MEDS ORDERED: ACETAMINOPHEN 650 MG/SUPP.RECT RC PRN (23:30)
[2017-11-10] MEDS ORDERED: Z GUARD REMEDY 2 OZ OINT TP PRN (23:30)
[2017-11-10 23:36] LABS: ABG BASE EXCESS 2.2 mmol/L; ABG OXYGEN SATURATION 99.2 % (92.0-98.5); ABG PCO2 36.5 mmHg (35.0-45.0); ABG PO2 244.6 mmHg (75.0-100.0); AaDO2 431.9 mmHg; COHb 0.5 % (0.5-1.5); MetHb 0.7 % (0.0-1.5); SITE, ABG Right Brachial; VENT MODE, BG 100% NRB
--- NOTE | 2017-11-10 23:53 | NUR ---
PT ASSIGNED TO 115-2
--- NOTE | 2017-11-11 | NUR ---
REPORT GIVEN TO MAX MARCANO FOR NUSRAT
--- NOTE | 2017-11-11 00:24 | NUR ---
PT TRANSFERRED PER ACLS PROTOCOL.
[2017-11-11 00:30] VITALS: BP 117/58
--- NOTE | 2017-11-11 00:30 | NUR ---
BC RN NOTE ADMITTED 82 YEARS OLD FEMALE PT FROM ER WITH THE DX OF SEPSIS/PNA BY DR COLE. PT IS LETHARGIC AT TIME BUT OPEN EYES ON VERBAL AND TACTILE STIMULATION. NO SOB, NO DISTRESS OR DISCOMFORT NOTED. ON O2 6L VIA SIMPLE MASK O2 SAT 95%. NO S/S OF PAIN NOTED. SKIN ASSESSMENT DONE, PICTURES TAKEN AND PLACE THEM IN THE CHART. ALSO WOUND AND DIETRY CONSULT TRIGGERED. F/C INTACT AND PATENT DRAINING YELLOWISH COLOR URINE. ON TELE SR HR 94. NO FEVER AT THIS TIME. VSS. INCONTINENCE CARE GIVEN. KEPT HOB ELEVATED. ASPIRATION PRECAUTION TAKEN. LEVAQUIN 750 MG IVF INFUSING WHICH STARTED IN ER. NO S/S OF INFILTRATION NOTED. FAMILY AT BED SIDE. PROVIDED THE HX OF THE PT. SIDE RAILS UP X 3 AND CALL LIGHT WITHIN REACH. CONTINUE TO MONITOR.
[2017-11-11] MEDS ORDERED: VANCOMYCIN 1 GM in IV D5W 250 ML IV ONE (01:00)
[2017-11-11] MEDS ORDERED: VANCOMYCIN 1 GM VIAL ONE (01:53)
[2017-11-11] MEDS: IV NS 0.9% 1,000 ML IV PRN ×2 (01:59→22:37)
--- NOTE | 2017-11-11 02:20 | NUR ---
BC RN NOTE PT IS MORE ALERT NOW. VANCO 1 G AND NS IVF STARTED ORDERED. PT IN NO DISTRESS OR DISCOMFORT NOTED.
[2017-11-11 04:00] VITALS: BP 126/64
[2017-11-11] MEDS ORDERED: PIPERACILLIN /TAZOBACTAM 3.375 G VIAL IV ONE (04:43)
[2017-11-11] MEDS ORDERED: PIPERACILLIN /TAZOBACTAM 3.375 G in IV D5W 100 ML IV SCH (05:00)
--- NOTE | 2017-11-11 07:03 | NUR ---
BC RN NOTE PT IN NO DISTRESS OR DISCOMFORT. NO S/S OF PAIN NOTED. ON TELE SR HR 86. KEPT HER DRY AND CLEAN. F/C INTACT AND PATENT DRAINING YELLOWISH COLOR URINE. IVF NS INFUSING AT 75 ML/HR, NO S/S OF INFILTRATION NOTED. REPOSITION HER Q2H, ALL NEEDS ATTENDED. ENDORSE TO DAY SHIFT NURSE FOR CONTINUE TO CARE.
[2017-11-11 07:52] LABS: BASOPHILS % (AUTO) 0.5 % (0.0-2.0); EOSINOPHILS # (AUTO) 0.3 /CMM (0.0-0.7); EOSINOPHILS % (AUTO) 3.9 % (0.0-6.0); HEMATOCRIT 22 % (33-45); HEMOGLOBIN 7.2 g/dL (11.5-14.8); LYMPHOCYTES # (AUTO) 0.6 /CMM (0.8-4.8); LYMPHOCYTES % (AUTO) 8.5 % (20.0-44.0); MEAN CORPUSCULAR HEMOGLOBIN 31 PG (26.0-33.0); MEAN CORPUSCULAR HGB CONC 33 g/dl (31.0-36.0); MEAN CORPUSCULAR VOLUME 93 fL (82-100); MONOCYTES # (AUTO) 0.6 /CMM (0.1-1.30); MONOCYTES % (AUTO) 8.5 % (2.0-12.0); NEUTROPHILS # (AUTO) 5.6 /CMM (1.8-8.9); NEUTROPHILS % (AUTO) 78.6 % (43.0-81.0); PLATELET COUNT (AUTO) 304 /CMM (150-450); RDW COEFFICIENT OF VARIATION 16.2 (11.5-15.0); WHITE BLOOD COUNT (AUTO) 7.2 K/uL (4.3-11.0)
[2017-11-11] MEDS ORDERED: FEE PK DOSING 1 MIN EA MC ONE (07:56)
[2017-11-11 07:57] LABS: CALCIUM, SERUM 7.5 mg/dL (8.5-10.1); CARBON DIOXIDE 30 mmol/L (21-32); CHLORIDE 103 mmol/L (98-107); CREATININE 0.5 mg/dL (0.6-1.3); GLUCOSE 98 mg/dL (74-106); MAGNESIUM 1.6 mg/dL (1.8-2.4); POTASSIUM 3.7 mmol/L (3.5-5.1); SODIUM SERUM 137 mmol/L (136-145); UREA NITROGEN, BLOOD 12 mg/dL (7-18)
[2017-11-11 08:00] VITALS: BP 106/53
[2017-11-11 08:09] LABS: CHOLESTEROL 127 mg/dL (<200); HDL CHOLESTEROL 35 mg/dL (40-60); LDL 86 mg/dL (0-99); THYROID STIMULATING HORMONE 1.097 uIU/mL (0.358-3.74); TRIGLYCERIDES 79 mg/dL (30-150)
[2017-11-11] MEDS: PANTOPRAZOLE 40 MG VIAL IV SCH (08:30)
[2017-11-11] MEDS: ENOXAPARIN SODIUM 40 MG/0.4 ML DISP.SYRIN SQ SCH (08:35)
[2017-11-11 12:00] VITALS: BP 95/48
[2017-11-11] MEDS: Magnesium 1GM/D5W 100ML PREMIX 100 ML IV SCH ×2 (12:23→14:20)
--- NOTE | 2017-11-11 12:28 | NUR ---
WOUND CARE CONSULT: PT PRESENTS WITH RASH TO PERINEUM AND BUTTOCKS, PRESENT ON ADMISSION. RECOMMENDATIONS MADE FOR SKIN PROTECTION AND CARE. DISCUSSED WITH NURSING STAFF. PT ON FIRST STEP MATTRESS. HEALED AREA NOTED TO LEFT LOWER LEG. PT NOTED TO HAVE GENERALIZED EDEMA. ALL SKIN PROTECTION MEASURES IN PLACE. WILL SEE PRN. PT IS NPO AT THIS TIME. MD IN AGREEMENT WITH PLAN OF CARE. CURRENT FLORIN SCORE IS 12. Addendum: 11/11/17 at 1230 by JAH CARUSO WNDNU Amended: Links added.
[2017-11-11] MEDS ORDERED: CLOTRIMAZOLE/BETAMETASONE DIPROPIONATE 15 GM TUBE TP SCH (12:30)
[2017-11-11] MEDS: PIPERACILLIN /TAZOBACTAM 3.375 G in IV NS 0.9% 50 ML IV SCH ×3 (13:22→23:13)
[2017-11-11 16:00] VITALS: BP 95/45
[2017-11-11] MEDS: VANCOMYCIN 500 MG in IV D5W 100 ML IV SCH (16:38)
[2017-11-11] MEDS: CLOTRIMAZOLE/BETAMETASONE DIPROPIONATE 15 GM TUBE TP SCH (16:39)
--- NOTE | 2017-11-11 19:30 | NUR ---
RN NOTE RECEIVED PATIENT IN THE BED, LETHARGIC, CONFUSED, OPEN EYES SPONTANEOUSLY, NO RESPIRATORY DISTRESS NOTED, NO PAIN OR DISCOMFORT NOTED, SON EUGENE IS BY BEDSIDE, SR, ONGOING IV FLUIDS RIGHT FOREARM AT 20 NS AT 75 ML/HR, LEFT HAND 24 GAUGE, LEFT AC 18 GAUGE, NO S/S OF INFILTRATION/INFECTION NOTED, ALL SAFETY MEASURES TAKEN, CALL LIGHT WITHIN REACH, ALL BELONGINGS WITHIN REACH, WILL CONTINUE TO MONITOR PATIENT
[2017-11-11 20:00] VITALS: BP 113/76
[2017-11-12] VITALS (47 sets, daily range): BP systolic 58–142; BP diastolic 36–100
[2017-11-12] MEDS: VANCOMYCIN 500 MG in IV D5W 100 ML IV SCH ×2 (03:06→16:09)
--- NOTE | 2017-11-12 03:15 | NUR ---
RN NOTE GENERALIZED EDEMA, SPOKE TO DOCTOR DOUGLAS CORDON NEW ORDER TO STOP IV FLUIDS GIVEN AND CARRIED OUT
[2017-11-12] MEDS: PIPERACILLIN /TAZOBACTAM 3.375 G in IV NS 0.9% 50 ML IV SCH ×4 (05:23→23:11)
--- NOTE | 2017-11-12 06:45 | NUR ---
RN CLOSING NOTE NO ACUTE CHANGES DURING MY SHIFT, STILL LETHARGIC, OPEN EYES SPONTANEOUSLY, MUMBLES WORDS IN WOLOF AT TIMES, NO RESPIRATORY DISTRESS NOTED, STILL ON SIMPLE MASK AT 5 ML/MIN, TOLERATES WELL SO2 99%, NPO, AWAITING FOR SWALLOW EVAL., SON EUGENE WANTS TO BE PRESENT DURING SWALLOW EVALUATION AND PROVIDE HIS RECOMMENDATIONS HOW HE WAS FEEDING HIS MOM PRIOR TO ADMISSION, NOTIFIED CHARGE NURSE AND WILL NOTIFY AM NURSE TO FOLLOW UP, NO S/S OF PAIN OR DISCOMFORT NOTED, ON TELEMONITOR SR 82, STILL GENERALIZED EDEMA, IV FLUIDS WERE DC PER DR DOUGLAS CORDON ORDER, RIGHT FOREARM 20 GAUGE AND LAC 18 GAUGE INTACT, NO S/S OF INFECTION/INFILTRATION NOTED. ALL SAFETY MEASURES TAKEN, CALL LIGHT WITHIN REACH, ALL BELONGINGS WITHIN REACH, BED IN THE LOWEST POSITION, SIDE RAILS UP X 2, TURNED AND REPOSITIONED Q 2 HOURS, WILL ENDORSE TO AM NURSE TO CONTINUE CARE
[2017-11-12 07:10] LABS: BASOPHILS % (AUTO) 0.8 % (0.0-2.0); EOSINOPHILS # (AUTO) 0.4 /CMM (0.0-0.7); EOSINOPHILS % (AUTO) 6.3 % (0.0-6.0); HEMATOCRIT 23 % (33-45); HEMOGLOBIN 7.8 g/dL (11.5-14.8); LYMPHOCYTES # (AUTO) 0.6 /CMM (0.8-4.8); LYMPHOCYTES % (AUTO) 9.3 % (20.0-44.0); MEAN CORPUSCULAR HEMOGLOBIN 32 PG (26.0-33.0); MEAN CORPUSCULAR HGB CONC 34 g/dl (31.0-36.0); MEAN CORPUSCULAR VOLUME 94 fL (82-100); MONOCYTES # (AUTO) 0.4 /CMM (0.1-1.30); MONOCYTES % (AUTO) 6.9 % (2.0-12.0); NEUTROPHILS # (AUTO) 4.6 /CMM (1.8-8.9); NEUTROPHILS % (AUTO) 76.7 % (43.0-81.0); PLATELET COUNT (AUTO) 343 /CMM (150-450); RDW COEFFICIENT OF VARIATION 16.2 (11.5-15.0); RED BLOOD CELL COUNT(AUTO) 2.43 MIL/uL (4.0-5.2); WHITE BLOOD COUNT (AUTO) 6.1 K/uL (4.3-11.0)
--- NOTE | 2017-11-12 07:10 | NUR ---
RN INITIAL NOTES: REC'D PT AWAKE ON BED, NOT IN ANY DISTRESS, LETHARGIC, OPENS EYES SPONTANEOUSLY. ON FACE MASK AT 5LPM, NO SOB. ON TELEMONITOR, SR W/ HR 91 BPM. HAS 2 IV LINES ACCESS: RFA G20 AND L AC G18, SL, BOTH FLUSHING WELL, NO S/SX OF INFECTION/INFILTRATION NOTED. PROVIDED COMFORT & SAFETY MEASURES. BED KEPT LOW & IN LOCKED POS. CALL LIGHT PLACED W/IN REACH. WILL CONTINUE TO MONITOR & ATTEND PT NEEDS.
[2017-11-12 07:37] LABS: CALCIUM, SERUM 7.9 mg/dL (8.5-10.1); CARBON DIOXIDE 29 mmol/L (21-32); CHLORIDE 105 mmol/L (98-107); CREATININE 0.4 mg/dL (0.6-1.3); GLUCOSE 93 mg/dL (74-106); MAGNESIUM 2.2 mg/dL (1.8-2.4); PHOSPHORUS 3.4 mg/dL (2.5-4.9); POTASSIUM 3.3 mmol/L (3.5-5.1); SODIUM SERUM 140 mmol/L (136-145); UREA NITROGEN, BLOOD 7 mg/dL (7-18)
[2017-11-12 07:42] LABS: PREALBUMIN 10.5 MG/DL (18.0-35.7)
[2017-11-12] MEDS: PANTOPRAZOLE 40 MG VIAL IV SCH (09:20)
[2017-11-12] MEDS: ENOXAPARIN SODIUM 40 MG/0.4 ML DISP.SYRIN SQ SCH (09:25)
--- NOTE | 2017-11-12 10:00 | NUR ---
RN NOTES: PT FOR SWALLOW EVALUATION. CALLED SON EUGENE & MADE HIM AWARE. PER SON, HE WANTS TO BE AT BEDSIDE WHEN THEY DO SWALLOW EVAL. HE SAID HE'LL BE IN THE HOSPITAL IN 10 MINS. 1015h SWALLOW EVALUATION DONE BY ST WHILE SON AT BEDSIDE. PT ON HIGH SALINAS'S POSITION. PT NOTED DELAYED SWALLOWING WHEN FED W/ PUREED DIET. PER ST, PT NOT SAFE TO BE FED BY P.O. SON IS AWARE. HOWEVER, SON IS KIND OF INSISTING TO FEED HER MOTHER THRU ORAL. ST WELL RN EXPLAINED TO HIM THOROUGHLY THE RISK OF ASPIRATION IF PT FEED ORALLY. ALSO DISCUSSED W/ SON, THE NEED TO INSERT NGT TO START HER ON TUBE FEEDING. SON VERBALIZED UNDERSTANDING AND AGREED W/ NGT INSERTION/FEEDING. DR. MACKEY MADE AWARE W/ ORDERS MAY INSERT NGT & START TUBE FEEDING FIBERSOURCE HN X 60 CC/HR. ALSO ORDERED GI CONSULT FOR POSS GT INSERTION.
--- NOTE | 2017-11-12 10:20 | NUR ---
RN NOTES: PT NOTED TO BE PALE LOOKING, CAROTID PULSE CHECKED (WEAK), PT IS UNRESPONSIVE. INITIATED CODE BLUE, STARTED CPR AT 1025h. INTUBATION DONE AT 1033h BY DR. MACKEY. 1057h CODE ENDED, OUTCOME SUCCESSFUL. PT WAS TRANSFERRED TO ICU ROOM 260. REPORT GIVEN TO CON COUNTRY PRINTER. SON EUGENE IS AWARE OF PT'S STATUS. NO CONCERNS IDENTIFIED AT THIS TIME.
[2017-11-12 10:56] LABS: ABG BASE EXCESS -2.5 mmol/L; ABG OXYGEN SATURATION 98.9 % (92.0-98.5); ABG PCO2 60.2 mmHg (35.0-45.0); ABG PH 7.234 (7.350-7.450); ABG PO2 334.3 mmHg (75.0-100.0); AaDO2 318.5 mmHg; COHb 0.3 % (0.5-1.5); MetHb 0.6 % (0.0-1.5); PEEP,BG 0 cm H2O; SITE, ABG Right Radial; VT, ABG 450 mL
[2017-11-12] MEDS ORDERED: SODIUM BICARBONATE SYR 50 MEQ/50 ML DISP.SYRIN IV ONE (11:00)
[2017-11-12] MEDS ORDERED: EPINEPHRINE (1:10,000) SYRINGE 1 MG/10 ML DISP.SYRIN IVP ONE (11:00)
[2017-11-12] MEDS ORDERED: FEE EMEERGENCY 1 MIN EA MC ONE (11:00)
--- NOTE | 2017-11-12 11:24 | NUR ---
RT UPON ARRIVAL PT WAS IN CARDIAC ARREST, CPR WAS ALREADY INITIATED. DR COLEMAN INTUBATED WITH A 7.5 ETT SECURED AT 25CM AT THE LIP LINE. PT REGAINED ROSC AND PT WAS PLACED ON VENTILATOR (AC, 18, 450, 100%, +0). DR. KEY COLEMAN VIEWED POST INTUBATION CHEST X-RAY AND ORDERED TO PULL OUT ETT 4CM TO 21CM. ABG SHOWN TO DR. COLEMAN AND VENT CHANGE ORDERS WERE MADE TO (AC, 24, 450, 100%, +0). EQUAL BILATERAL BREATHE SOUNDS AND CHEST RISE. PT BROUGHT UP TO ICU AND PLACED ON VENT WITH NOTED SETTINGS. VENT IS PLUGGED INTO RED OUTLET. TELEVISION REPAIRMAN CUFF PRESSURE NOTED. VENT ALARMS ARE SET AND AUDIBLE. SX LARGE THICK PETERS SECRETIONS, WILL CONTINUE TO MONITOR. Addendum: 11/12/17 at 1132 by WENDI CRAIG RT Amended: Links added.
--- NOTE | 2017-11-12 14:00 | NUR ---
RN NOTES RECEIVED PT FROM BC S/P CODE BLUE. TRANSPORTED VIA BED. NOTED HYPOTENSIVE, WILL START LEVO ORDERED. PT INTUBATED FROM BC,NOTED WITH YANIQUE PICC LINE 1300 RECEIVED CALL FROM RADIOLOGIST, PT HAS RIGHT SIDED PNEUMOTHORAX. DR SABILLON NOTIFIED, PER MD TO CALL KEY COLEMAN STAT TO INSERT CHEST TUBED. STIM JARED PAGED. 1400 R SIDE CHEST TUBE INSERTED BY DR COLEMAN, ART LINE IN PACED. PT ON CVP MONITORING. STILL ON LEVOPHED @40MCG/MIN. WILL MONITOR CLOSELY
[2017-11-12 14:33] LABS: ABG BASE EXCESS -0.4 mmol/L; ABG OXYGEN SATURATION 97.2 % (92.0-98.5); ABG PCO2 35.4 mmHg (35.0-45.0); ABG PH 7.441 (7.350-7.450); ABG PO2 107.3 mmHg (75.0-100.0); AaDO2 570.3 mmHg; COHb 0.3 % (0.5-1.5); MetHb 0.9 % (0.0-1.5); SITE, ABG Right Radial; VT, ABG 450 mL
[2017-11-12] MEDS: NOREPINEPHRINE 8 MG in IV D5W 500 ML IV PRN (15:34)
[2017-11-12] MEDS: POTASSIUM CL. PREMIX PERIPHER. 50 ML IV SCH ×2 (16:08→17:06)
[2017-11-12] MEDS ORDERED: NOREPINEPHRINE 8 MG in IV D5W 500 ML IV PRN (19:00)
--- NOTE | 2017-11-12 20:29 | NUR ---
received pt from day shift, s/p Aspiration PNA with subsequent intubation, obtunded, responds to pain stimuli, SR, receiving levo at 8mcg, on the vent, lungs partially congested, R chest tube intact connected to suction, no residual, no leak noted, CVP monitoring and [place], OG clamped, f/c, v/s stable, no pain, pt turned and repositioned, family at the bedside.
[2017-11-12] MEDS: CLOTRIMAZOLE/BETAMETASONE DIPROPIONATE 15 GM TUBE TP SCH (21:28)
[2017-11-12] MEDS ORDERED: ACETAMINOPHEN 650 MG/20.3 ML UDC NG PRN (23:00)
[2017-11-13] VITALS (27 sets, daily range): BP systolic 55–157; BP diastolic 33–83
--- NOTE | 2017-11-13 00:16 | NUR ---
pt is resting in the bed, obtunded, rhythm change to Afib and Bigeminy, Dr Simons notified, order to continue to observe received, on levo at 10mcg, v/s stable, no pain, pt turned and repositioned q2hrs.
[2017-11-13] MEDS: NOREPINEPHRINE 8 MG in IV D5W 500 ML IV PRN (00:33)
[2017-11-13] MEDS ORDERED: EPINEPHRINE (1:10,000) SYRINGE 1 MG/10 ML DISP.SYRIN IVP ONE (01:05)
[2017-11-13] MEDS ORDERED: FEE EMEERGENCY 1 MIN EA MC ONE (01:05)
--- NOTE | 2017-11-13 01:08 | NUR ---
rhythm change to Vfib, code called, ACLS followed, pt shocked one time and converted to NSR, ER MD at the bedside. v/s stable, pt's son notified.
--- NOTE | 2017-11-13 01:15 | NUR ---
Dr Lei Trevino notified regarding patient going to [facility] and outcomes.
--- NOTE | 2017-11-13 01:15 | NUR ---
ICU/RN- SON EUGENE NOTIFIED BY PHONE OF PT. CP ARREST AND PT. CURRENT STATUS.
[2017-11-13] MEDS: VANCOMYCIN 500 MG in IV D5W 100 ML IV SCH (01:36)
--- NOTE | 2017-11-13 03:00 | NUR ---
pt back to Vfib, code initiated, pt shocked one time and converted to SR, pt's son notified.
--- NOTE | 2017-11-13 03:15 | NUR ---
pt's son decided to change pt's status to DNR Dr Jayla Trevino will be notified.
[2017-11-13 03:20] LABS: BASOPHILS % (AUTO) 0.3 % (0.0-2.0); EOSINOPHILS % (AUTO) 0.1 % (0.0-6.0); LYMPHOCYTES # (AUTO) 1.6 /CMM (0.8-4.8); LYMPHOCYTES % (AUTO) 12.9 % (20.0-44.0); MEAN CORPUSCULAR HEMOGLOBIN 31 PG (26.0-33.0); MEAN CORPUSCULAR HGB CONC 33 g/dl (31.0-36.0); MEAN CORPUSCULAR VOLUME 94 fL (82-100); MONOCYTES # (AUTO) 0.9 /CMM (0.1-1.30); MONOCYTES % (AUTO) 7.2 % (2.0-12.0); NEUTROPHILS # (AUTO) 9.7 /CMM (1.8-8.9); NEUTROPHILS % (AUTO) 79.5 % (43.0-81.0); PLATELET COUNT (AUTO) 374 /CMM (150-450); RDW COEFFICIENT OF VARIATION 16.3 (11.5-15.0); RED BLOOD CELL COUNT(AUTO) 2.25 MIL/uL (4.0-5.2); WHITE BLOOD COUNT (AUTO) 12.3 K/uL (4.3-11.0)
[2017-11-13 03:25] LABS: HEMATOCRIT 21 % (33-45)
[2017-11-13 03:33] LABS: CHLORIDE 103 mmol/L (98-107); CREATININE 0.7 mg/dL (0.6-1.3); GLUCOSE 180 mg/dL (74-106); MAGNESIUM 1.8 mg/dL (1.8-2.4); PHOSPHORUS 2.6 mg/dL (2.5-4.9); SODIUM SERUM 139 mmol/L (136-145); UREA NITROGEN, BLOOD 9 mg/dL (7-18)
[2017-11-13 03:35] LABS: POTASSIUM 2.8 mmol/L (3.5-5.1)
[2017-11-13 03:38] LABS: CARBON DIOXIDE 25 mmol/L (21-32)
--- NOTE | 2017-11-13 04:09 | NUR ---
pt is resting in the bed, obtunded, SR with Bigeminies, on levo at 10mcg, v/s stable, no pain, pt cleaned, changed and repositioned q2hrs.
[2017-11-13] MEDS ORDERED: POTASSIUM CL. PREMIX PERIPHER. 200 ML ONE (04:56)
[2017-11-13] MEDS: POTASSIUM CL. PREMIX PERIPHER. 50 ML IV SCH ×2 (05:03→06:19)
[2017-11-13] MEDS: PIPERACILLIN /TAZOBACTAM 3.375 G in IV NS 0.9% 50 ML IV SCH (05:25)
--- NOTE | 2017-11-13 07:20 | NUR ---
DNR STATUS. PT IN COARSE VENTRICULAR FIBRILLATION ON MONITOR WITHOUT PULSES OR INTRA-ARTERIAL WAVE FORM. ON VENT VIA ETT AT FIO2 75%. FAMILY AWARE OF SITUATION
[2017-11-13] MEDS ORDERED: POTASSIUM CL. PREMIX PERIPHER. 50 ML IV SCH (07:30)
--- NOTE | 2017-11-13 07:36 | NUR ---
PT PRONOUNCED . DNR STATUS. EARLIER COARSE V FIB HAS NOW DETERIORATED TO OCCASIONAL AGONAL WIDE COMPLEX ELECTRICAL BEAT WITHOUT PULSES OR OBTAINABLE BP. NO SPONTAN RESPIRATORY EFFORT ON VENT A/C MODE. PUPILS FIXED AND DILATED. VENTILATOR D/C'D. FAMILY CALLED. WILL BE IN. DNP JARED NOTIFIED.
--- NOTE | 2017-11-13 08:45 | NUR ---
PATIENT SUPPORT PARTNER- Pt taken down to [place] with security, accompanied by myself. Addendum: 11/13/17 at 0908 by LESLEY HONG RN Postmortem care provided.
== END 2017-11-13 07:40 | disposition expired | DRG 871 ==
LOC: ER 21:15 → TELE-TD 23:56 → TELE1 11-11 10:03 → ICU 11-12 11:02
PROC: 5A1935Z Respiratory Ventilation, Less than 24 Consecutive Hours (ICD-10-PCS; principal; 2017-11-12)
PROC: 0BH17EZ Insertion of Endotracheal Airway into Trachea, Via Natural or Artificial Opening (ICD-10-PCS; 2017-11-12)
PROC: 05H633Z Insertion of Infusion Device into Left Subclavian Vein, Percutaneous Approach (ICD-10-PCS; 2017-11-12)
PROC: 0W9900Z Drainage of Right Pleural Cavity with Drainage Device, Open Approach (ICD-10-PCS; 2017-11-12)
PROC: 03HY32Z Insertion of Monitoring Device into Upper Artery, Percutaneous Approach (ICD-10-PCS; 2017-11-12)
PROC: 5A12012 Performance of Cardiac Output, Single, Manual (ICD-10-PCS; 2017-11-12)
PROC: 5A2204Z Restoration of Cardiac Rhythm, Single (ICD-10-PCS; 2017-11-13)
DX: A41.9 Sepsis, unspecified organism (principal); E43 Unspecified severe protein-calorie malnutrition; R65.21 Severe sepsis with septic shock; G93.41 Metabolic encephalopathy; J18.9 Pneumonia, unspecified organism; J90 Pleural effusion, not elsewhere classified; J96.01 Acute respiratory failure with hypoxia; J96.02 Acute respiratory failure with hypercapnia; S27.0XXA Traumatic pneumothorax, initial encounter; E88.09 Other disorders of plasma-protein metabolism, not elsewhere classified; S22.39XA Fracture of one rib, unspecified side, initial encounter for closed fracture; Z68.1 Body mass index [BMI] 19.9 or less, adult; B37.49 Other urogenital candidiasis; D64.9 Anemia, unspecified; F03.90 Unspecified dementia, unspecified severity, without behavioral disturbance, psychotic disturbance, mood disturbance, and anxiety; L30.4 Erythema intertrigo; E83.42 Hypomagnesemia; E83.51 Hypocalcemia; E87.6 Hypokalemia; F09 Unspecified mental disorder due to known physiological condition
CPT/HCPCS: 36415; 36600; 71045-TC; 80048-TC; 80061-TC; 80076-TC; 80202-TC; 81000-TC; 82803-TC; 82962-TC; 83605-TC; 83735-TC; 84100-TC; 84134-TC; 84443-TC; 84484-TC; 85025-TC; 85730-TC; 86850-TC; 87040-TC; 87086-TC; 92611-TC; 92950-TC; 94002-TC; A4216; A4606; A6403; C9113; J0171; J1650; J1956; J2543; J3370; J3475; J3480; J3490; J7030; J7040; J7050; J7060; Q9967; Z7610